=== PATIENT | female | born 1940 | race Caucasian/White ===

== ENCOUNTER 2017-08-17 18:25 | Emergency (ER) | payer MEDICARE, OTHER ==
--- NOTE | 2017-08-17 19:19 | ERPHSYRPT ---
- History of Present Illness Time Seen by Provider: 08/17/17 19:13 Source: patient Exam Limitations: no limitations Patient Subjective Stated Complaint: Pt states "I think I am having problems with my kidneys. My back really hurts." Triage Nursing Assessment: Pt alert and oriented X 3, skin pwd. PT ambulates with an upright steady gait, able to speak in clear full sentences. PT in no aparent respiratory distress. Physician History: Pt. with history of DJD presents with urinary symptoms and R side back pain for past 2 weeks. States R sided back pain is dull ache, intermittent, localized and worse with movements. Pt. also with difficulty urinating, urgency, frequency but denies dysuria, fever, chills, vomiting, dizziness or weakness. States she took Celebrex for discomfort. Timing/Duration: week(s) (2), intermittent Activites at Onset: none Quality: aching, fullness Onset Location: right flank Pain Radiation: none Severity of Pain-Max: moderate Severity of Pain-Current: mild Sexual intercourse history: non-contributory Modifying Factors: Improves With: lying down (improves), movement (worsens) Associated Symptoms: nausea, urinary frequency, lower back pain, No abdominal pain, No fever, No chills, No vomiting Allergies/Adverse Reactions: phenobarbital Allergy (Mild, Verified 09/10/14 20:29) Rash promethazine HCl [From Phenergan] Adverse Reaction (Mild, Verified 09/10/14 20: 29) Nausea Home Medications: Aspirin EC 81 mg [Ecotrin 81 mg] 81 mg PO DAILY 01/10/13 [History] Celecoxib [Celebrex] 200 mg PO DAILY 01/10/13 [History] Esomeprazole Magnesium [Nexium] 20 mg PO DAILY 01/10/13 [History] Insulin Aspart [NovoLOG Insulin] 0 unit SQ UD 01/10/13 [History] Insulin Glargine [Lantus Insulin] 12 unit SQ UD 01/10/13 [History] Levothyroxine Sodium 125 Mcg [Synthroid 125 Mcg] 100 mcg PO DAILY 01/10/13 [History] Lorazepam [Ativan] 2 mg PO HS PRN 01/10/13 [History] Metoprolol Succinate 100 mg [Toprol Xl 100 MG] 100 mg PO DAILY 09/11/14 [ History] Valsartan [Valsartan] 160 mg PO DAILY 08/17/17 [History] Hx Tetanus, Diphtheria Vaccination/Date Given: No Hx Influenza Vaccination/Date Given: Yes Hx Pneumococcal Vaccination/Date Given: Yes - Review of Systems Constitutional: No Fever, No Chills Eyes: No Symptoms Ears, Nose, & Throat: No Symptoms Respiratory: No Symptoms, No Cough, No Dyspnea Cardiac: No Symptoms, No Chest Pain, No Edema, No Syncope Abdominal/Gastrointestinal: Nausea, No Abdominal Pain, No Vomiting, No Diarrhea , No Melena Genitourinary Symptoms: Frequency, Urgency, No Dysuria, No Hematuria Musculoskeletal: Back Pain (R sided), No Neck Pain Skin: No Symptoms, No Rash Neurological: No Dizziness, No Focal Weakness, No Sensory Changes Psychological: No Symptoms Endocrine: No Symptoms All Other Systems: Reviewed and Negative - Past Medical History Pertinent Past Medical History: Yes Neurological History: Migraines, Other ENT History: Cataracts Cardiac History: Arrhythmia, Hypertension Respiratory History: No Pertinent History Endocrine Medical History: Diabetes Type I, Hypothyroidism, Liver Disease Musculoskeletal History: Fibromyalgia, Osteoporosis GI Medical History: Cirrhosis, GERD, Gallbladder Disease, Hepatitis History: No Pertinent History Psycho-Social History: Anxiety Female Reproductive Disorders: Fibroids Other Medical History: hepatitis with blood transfusion. brain tumor- ( menjanoni) no intervention - Past Surgical History Past Surgical History: Yes Neuro Surgical History: No Pertinent History Cardiac: Cardiac Catheterization Respiratory: No Pertinent History Gastrointestinal: Appendectomy, Cholecystectomy Genitourinary: No Pertinent History Musculoskeletal: Joint Replacement, Orthopedic Surgery Female Surgical History: Hysterectomy, Lumpectomy Other Surgical History: back surgery. bilateral wrist. Left hip replacement. left cataract lens - Social History Smoking Status: Never smoker Exposure to second hand smoke: No Drug Use: none Patient Lives Alone: No - Female History Hx Now: No - Nursing Vital Signs Nursing Vital Signs: Initial Vital Signs Temperature 98.1 F 08/17/17 18:32 Pulse Rate 90 08/17/17 18:32 Respiratory Rate 16 08/17/17 18:32 Blood Pressure 173/78 08/17/17 18:32 O2 Sat by Pulse Oximetry 94 L 08/17/17 18:32 Pain Scale Pain Intensity 0 - Physical Exam General Appearance: no apparent distress, alert Eye Exam: PERRL/EOMI, eyes nml inspection Ears, Nose, Throat Exam: normal ENT inspection, TMs normal, pharynx normal, moist mucous membranes Neck Exam: normal inspection, non-tender, supple, full range of motion Respiratory Exam: normal breath sounds, lungs clear, No respiratory distress Cardiovascular Exam: regular rate/rhythm, normal heart sounds, normal peripheral pulses Gastrointestinal/Abdomen Exam: soft, No tenderness, No mass Back Exam: normal inspection, normal range of motion, vertebral tenderness (R paralumbar tenderness to palpation), No CVA tenderness Extremity Exam: normal inspection, normal range of motion, pelvis stable Neurologic Exam: alert, oriented x 3, cooperative, security auditor II-XII nml as tested, normal mood/affect, sensation nml, No motor deficits Skin Exam: normal color, warm, dry Lymphatic Exam: No adenopathy SpO2: 94 Oxygen Delivery: Room Air - Course Nursing assessment & vital signs reviewed: Yes - CT Exams Abdomen/Pelvis CT Interpretation: Tele-radiologist Report, Other (No hydronephrosis/stones noted) Ordered Tests: Active Orders 24 hr Category Date Time Status Clean Catch Urine Specimen STAT Care 08/17/17 19:13 Active ABDOMEN AND PELVIS W/0 CONTRAS [CT] Stat Exams 08/17/17 20:14 Taken CBC W DIFF Stat Lab 08/17/17 20:30 Completed CMP Stat Lab 08/17/17 20:30 Completed CULTURE,URINE Stat Lab 08/17/17 19:19 Received UA W/ MICROSCOPIC Stat Lab 08/17/17 19:19 Completed Medication Summary Discontinued Medications Generic Name Dose Route Start Last Admin Trade Name Caleb PRN Reason Stop Dose Admin Ondansetron HCl 4 mg 08/17/17 21:12 08/17/17 21:15 Zofran 4 Mg/2 Ml Vial IV 08/17/17 21:13 4 mg STAT ONE Administration Ondansetron HCl Confirm 08/17/17 21:13 Zofran 4 Mg/2 Ml Vial Administered 08/17/17 21:14 Dose 4 mg .ROUTE .STK-MED ONE Lab/Rad Data: Laboratory Result Diagrams 08/17/17 20:30 08/17/17 20:30 Laboratory Results 08/17/17 08/17/17 08/17/17 Range/Units 20:30 20:30 19:19 WBC 5.7 (4.0-10.5) K/mm3 RBC 4.19 (4.1-5.4) M/mm3 Hgb 13.1 (12.0-16.0) gm/dl Hct 38.1 (35-47) % MCV 90.9 (78-100) fl MCH 31.3 (26-32) pg MCHC 34.4 (32-36) g/dl RDW 13.9 (11.5-14.0) % Plt Count 105 L (150-450) K/mm3 MPV 11.0 H (6-9.5) fl Gran % 74.7 H (36.0-66.0) % Eos # (Auto) 0.04 (0-0.5) Absolute Lymphs (auto) 0.91 L (1.0-4.6) Absolute Monos (auto) 0.46 (0.0-1.3) Lymphocytes % 16.0 L (24.0-44.0) % Monocytes % 8.1 (0.0-12.0) % Eosinophils % 0.7 (0.00-5.0) % Basophils % 0.5 (0.0-0.4) % Absolute Granulocytes 4.23 (1.4-6.9) Basophils # 0.03 (0-0.4) Sodium 138 (137-145) mmol/L Potassium 4.3 (3.5-5.1) mmol/L Chloride 103 (98-107) mmol/L Carbon Dioxide 26 (22-30) mmol/L Anion Gap 13.4 (5-15) MEQ/L BUN 13 (7-17) mg/dL Creatinine 0.62 (0.52-1.04) mg/dL Estimated GFR > 60 ML/MIN Glucose 122 H (74-106) mg/dL Calcium 9.3 (8.4-10.2) mg/dL Total Bilirubin 0.70 (0.2-1.3) mg/dL AST 24 (14-36) U/L ALT 16 (0-35) U/L Alkaline Phosphatase 83 (38-126) U/L Serum Total Protein 7.0 (6.3-8.2) g/dL Albumin 3.9 (3.5-5.0) g/dL Ur Collection Type VOID Urine Color YELLOW (YELLOW) Urine Appearance CLEAR (CLEAR) Urine pH 5.0 (5-6) Ur Specific [place] 1.020 (1.005-1.025) Urine Protein NEGATIVE (Negative) Urine Ketones NEGATIVE (NEGATIVE) Urine Blood 250 (0-5) Erickson/ul Urine Nitrite NEGATIVE (NEGATIVE) Urine Bilirubin SMALL (NEGATIVE) Urine Urobilinogen 4 (0-1) mg/dL Ur Leukocyte Esterase TRACE (NEGATIVE) Urine Microscopic RBC 5-10 (0-2) /HPF Urine Microscopic WBC 2-5 (0-5) /HPF Ur Epithelial Cells MODERATE (FEW) /HPF Urine Bacteria FEW (NEGATIVE) /HPF Urine Mucus MODERATE (NEGATIVE) /HPF Urine Culture Reflexed YES (NO) Urine Glucose 50 (NEGATIVE) mg/dL Specimen Received 08/17/171924 - Progress Progress: improved Air Movement: good Progress Note: 08/17/17 19:20 Offered Tylenol or Motrin, but pt. declined at this time Blood Culture(s) Obtained: No Counseled pt/family regarding: lab results, diagnosis - Departure Time of Disposition: 20:07 Departure Disposition: Home Clinical Impression: UTI (urinary tract infection) Condition: Stable Critical Care Time: No Referrals: NOAH DONAHUE [Primary Care Provider] - Instructions: Urinary Tract Infections in Adults Additional Instructions: Rx: Bactrim DS. Drink plenty of clear liquids. May take Motrin or Tylenol for pain/fever. Return for worse back/abdominal pain, vomiting, fever, dizziness, weakness or any problems Prescriptions: Cephalexin Mh 500 mg [Keflex 500 mg] 500 mg PO QID 5 Days #20 capsule Sulfamethoxazole/Trimethoprim [Bactrim Ds Tablet] 1 each PO BID 5 Days #10 tablet
[2017-08-17 20:02] LABS: Appearance CLEAR (CLEAR); Bacteria FEW /HPF (NEGATIVE); Bilirubin SMALL (NEGATIVE); Blood 250 Ery/ul (0-5); Epithelial Cells MODERATE /HPF (FEW); Glucose 50 mg/dL (NEGATIVE); Ketones NEGATIVE (NEGATIVE); Leukocyte Esterase TRACE (NEGATIVE); Mucus MODERATE /HPF (NEGATIVE); Nitrite NEGATIVE (NEGATIVE); Protein,Urine Dip NEGATIVE (Negative); Urobilinogen 4 mg/dL (0-1)
[2017-08-17 20:41] LABS: BASOPHIL % 0.5 % (0.0-0.4); Basophil (Absolute #) 0.03 (0-0.4); Eosinophil % 0.7 % (0.00-5.0); Eosinophil (Absolute #) 0.04 (0-0.5); Granulocyte Absolute (ANC) 4.23 (1.4-6.9); Granulocytes % 74.7 % (36.0-66.0); Hematocrit 38.1 % (35-47); Hemoglobin 13.1 gm/dl (12.0-16.0); Lymphocyte (Absolute #) 0.91 (1.0-4.6); Mean Cell Volume 90.9 fl (78-100); Mean Corpuscular Hemoglobin 31.3 pg (26-32); Mean Corpuscular Hgb Concent. 34.4 g/dl (32-36); Monocyte (Absolute #) 0.46 (0.0-1.3); Monocytes % 8.1 % (0.0-12.0); Platelet Count 105 K/mm3 (150-450); Red Blood Count 4.19 M/mm3 (4.1-5.4); Red Cell Distribution Width 13.9 % (11.5-14.0); White Blood Count 5.7 K/mm3 (4.0-10.5)
[2017-08-17 21:05] LABS: ALBUMIN 3.9 g/dL (3.5-5.0); ALKALINE PHOSPHATASE 83 U/L (38-126); ANION GAP 13.4 MEQ/L (5-15); BLOOD UREA NITROGEN 13 mg/dL (7-17); CHLORIDE 103 mmol/L (98-107); Calcium 9.3 mg/dL (8.4-10.2); Carbon Dioxide 26 mmol/L (22-30); Creatinine 1 0.62 mg/dL (0.52-1.04); Glucose 122 mg/dL (74-106); Potassium 4.3 mmol/L (3.5-5.1); SGOT/AST 24 U/L (14-36); SGPT/ALT 16 U/L (0-35); SODIUM 138 mmol/L (137-145)
[2017-08-17 21:12] VITALS: PULSE 71
[2017-08-17] MEDS ORDERED: Zofran 4 MG/2 ML VIAL IV ONE (21:12)
[2017-08-17] MEDS ORDERED: Zofran 4 MG/2 ML VIAL ONE (21:13)
[2017-08-17 22:26] VITALS: BP 146/79; O2SAT 95
--- NOTE | 2017-08-18 08:48 | XRAY ---
Indication: Right flank pain and hematuria. Multiple contiguous axial images obtained through the abdomen and pelvis without contrast using renal stone protocol. Comparison: June 02, 2012. Lung bases again demonstrates mild bibasilar atelectasis/scarring and right posterior calcified granuloma. No infiltrate or effusion. Heart is not enlarged. Again moderate sized hiatal hernia. There are bilateral hip prostheses producing extensive beam artifact limiting evaluation at this level. No renal calculus or evidence for obstructive uropathy in either system. Noncontrasted stomach and bowel loops appear nonobstructed. Previous reported appendectomy, hysterectomy, and cholecystectomy. No free fluid/air. Liver again demonstrates micro-lobular margins favoring cirrhosis. Spleen remains enlarged today measuring 15 cm in greatest axial dimension again with tiny calcified granulomas. Remaining pancreas, adrenal glands, kidneys, ureters, and bladder appear unremarkable for noncontrast exam. Mild aortoiliac calcifications without AAA. Osseous structures intact again with mild/moderate multilevel degenerative spondylosis, minimal grade 1 L4 spondylolisthesis, and mild levoscoliosis centered at L3. Impression: 1. Images through the pelvis limited due to beam artifact from bilateral hip prostheses. 2. No renal calculus or evidence for obstructive uropathy. 3. Again incidental cirrhotic appearing liver without ascites and splenomegaly. 4. Stable moderate-sized hiatal hernia and evidence for old granulomatous disease. 5. Stable scoliosis, multilevel degenerative spondylosis, and minimal grade [address] DI 23.68
== END 2017-08-17 22:34 | disposition home or self-care (01) ==
LOC: ED 18:25
DX: N39.0 Urinary tract infection, site not specified (principal); I10 Essential (primary) hypertension; E10.8 Type 1 diabetes mellitus with unspecified complications; Z79.4 Long term (current) use of insulin; E03.9 Hypothyroidism, unspecified; M79.7 Fibromyalgia; M81.0 Age-related osteoporosis without current pathological fracture; K74.60 Unspecified cirrhosis of liver; K21.9 Gastro-esophageal reflux disease without esophagitis; K75.9 Inflammatory liver disease, unspecified; Z79.899 Other long term (current) drug therapy
CPT/HCPCS: 36000; 36415; 74176; 80053; 81000; 85025; 87086; 96365; 96374; 99284; J2405

== ENCOUNTER 2018-05-12 18:43 | Emergency (ER) | payer MEDICARE, OTHER ==
[2018-05-12] MEDS ORDERED: Sodium Chloride 0.9% 1000 ML 1,000 ML IV SCH (19:15)
[2018-05-12] MEDS ORDERED: Sodium Chloride 0.9% 1000 ML 1,000 ML ONE (19:27)
[2018-05-12 19:37] LABS: BASOPHIL % 0.2 % (0.0-0.4); Basophil (Absolute #) 0.01 (0-0.4); Eosinophil % 2.6 % (0.00-5.0); Eosinophil (Absolute #) 0.12 (0-0.5); Granulocyte Absolute (ANC) 2.55 (1.4-6.9); Granulocytes % 56.3 % (36.0-66.0); Hematocrit 40.1 % (35-47); Hemoglobin 13.4 gm/dl (12.0-16.0); Lymphocyte (Absolute #) 1.57 (1.0-4.6); Lymphocytes % 34.7 % (24.0-44.0); Mean Cell Volume 92.8 fl (78-100); Mean Corpuscular Hgb Concent. 33.4 g/dl (32-36); Mean Platelet Volume 11.1 fl (6-9.5); Monocyte (Absolute #) 0.28 (0.0-1.3); Monocytes % 6.2 % (0.0-12.0); Platelet Count 100 K/mm3 (150-450); Red Blood Count 4.32 M/mm3 (4.1-5.4); Red Cell Distribution Width 13.5 % (11.5-14.0); White Blood Count 4.5 K/mm3 (4.0-10.5)
[2018-05-12 19:57] VITALS: O2SAT 97
--- NOTE | 2018-05-12 19:57 | ERPHSYRPT ---
- History of Present Illness Time Seen by Provider: 05/12/18 19:00 Source: patient Exam Limitations: clinical condition Patient Subjective Stated Complaint: pt here for palpations all day today, she has hx of this,pt denies any other cos, Triage Nursing Assessment: pt alert, resp easy, skin w/d/p. chest clear, abd soft, slight edema to lower legs Physician History: PATIENT WITH A HISTORY OF HYPOTHYROIDISM, HYPERTENSION AND PALPITATIONS FOR YEARS, COMPLAINS OF IRREGULAR HEART RATE TODAY. PATIENT DENIES CHEST PAIN, DIAPHORESIS OR DIZZINESS. Timing/Duration: day(s) Activities at Onset: none Location: substernal Chest Pain Radiation: no radiation Severity of Pain-Max: none Severity of Pain-Current: none Nitro Today/Relief: no nitro taken today Aspirin Treatment Today: no aspirin today, provided by ED Associated Symptoms: denies symptoms Prior Chest Pain/Cardiac Workup: no prior chest pain Allergies/Adverse Reactions: phenobarbital Allergy (Mild, Verified 05/12/18 19:00) Rash promethazine HCl [From Phenergan] Adverse Reaction (Mild, Verified 05/12/18 19: 00) Nausea Home Medications: Aspirin EC 81 mg [Ecotrin 81 mg] 81 mg PO DAILY 01/10/13 [History] Celecoxib [Celebrex] 200 mg PO DAILY 01/10/13 [History] Esomeprazole Magnesium [Nexium] 20 mg PO DAILY 01/10/13 [History] Insulin Aspart [NovoLOG Insulin] 0 unit SQ UD 01/10/13 [History] Insulin Glargine [Lantus Insulin] 12 unit SQ UD 01/10/13 [History] Levothyroxine Sodium 125 Mcg [Synthroid 125 Mcg] 100 mcg PO DAILY 01/10/13 [History] Lorazepam [Ativan] 2 mg PO HS PRN 01/10/13 [History] Metoprolol Succinate 100 mg [Toprol Xl 100 MG] 100 mg PO DAILY 09/11/14 [ History] Hx Tetanus, Diphtheria Vaccination/Date Given: No Hx Influenza Vaccination/Date Given: Yes Hx Pneumococcal Vaccination/Date Given: Yes Immunizations Up to Date: Yes - Review of Systems Constitutional: No Fever, No Chills Eyes: No Symptoms Ears, Nose, & Throat: No Symptoms Respiratory: No Symptoms, No Cough, No Dyspnea Cardiac: Palpitations, No Chest Pain, No Edema, No Syncope Abdominal/Gastrointestinal: Constipation, No Abdominal Pain, No Nausea, No Vomiting, No Diarrhea Genitourinary Symptoms: No Symptoms, No Dysuria Musculoskeletal: No Symptoms, No Back Pain, No Neck Pain Skin: No Rash Neurological: No Dizziness, No Focal Weakness, No Sensory Changes Psychological: No Symptoms Endocrine: No Symptoms All Other Systems: Reviewed and Negative - Past Medical History Pertinent Past Medical History: Yes Neurological History: Migraines, Other ENT History: Cataracts Cardiac History: Arrhythmia, Hypertension Respiratory History: No Pertinent History Endocrine Medical History: Diabetes Type I, Hypothyroidism, Liver Disease Musculoskeletal History: Fibromyalgia, Osteoporosis GI Medical History: Cirrhosis, GERD, Gallbladder Disease, Hepatitis History: No Pertinent History Psycho-Social History: Anxiety Female Reproductive Disorders: Fibroids Other Medical History: 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 bilateral wrist. Left hip replacement. left cataract lens - Social History Smoking Status: Never smoker Exposure to second hand smoke: No Drug Use: none Patient Lives Alone: No - Female History Hx Last Menstrual Period: post Hx Now: No - Nursing Vital Signs Nursing Vital Signs: Initial Vital Signs Temperature 97.0 F 05/12/18 18:50 Pulse Rate 97 H 05/12/18 18:50 Respiratory Rate 18 05/12/18 18:50 Blood Pressure 176/95 05/12/18 18:50 O2 Sat by Pulse Oximetry 97 05/12/18 18:50 Pain Scale Pain Intensity 0 - Physical Exam General Appearance: no apparent distress, alert Eye Exam: PERRL/EOMI, eyes nml inspection Ears, Nose, Throat Exam: normal ENT inspection, moist mucous membranes Neck Exam: normal inspection, non-tender, supple Respiratory Exam: normal breath sounds, lungs clear, No respiratory distress Cardiovascular Exam: regular rate/rhythm, normal heart sounds, No edema Gastrointestinal/Abdomen Exam: soft, No tenderness, No mass Back Exam: normal inspection, No CVA tenderness, No vertebral tenderness Extremity Exam: normal inspection, normal range of motion Neurologic Exam: alert, oriented x 3, cooperative, normal mood/affect, nml cerebellar function, sensation nml, No motor deficits Skin Exam: normal color, warm, dry Lymphatic Exam: No adenopathy SpO2: 97 Oxygen Delivery: Room Air - Course EKG Interpreted by Me: RATE, NORMAL AXIS (SINUS ARRHYTHMIA), Other (RATE 98) - Radiology Exams Chest X-ray Interpretation: Interpreted by me (CHRONIC INTERSTITIAL CHANGES) Ordered Tests: Active Orders 24 hr Category Date Time Status Welder Gas Tungsten Arc STAT Care 05/12/18 19:14 Active Oxygen-ED Only NASAL CANNULA 2 lpm Care 05/12/18 19:13 Active CHEST 1 VIEW (PORTABLE) Stat Exams 05/12/18 19:14 Taken BLOOD CULTURE Stat Lab 05/12/18 20:03 Ordered CBC W DIFF Stat Lab 05/12/18 19:10 Completed CMP Stat Lab 05/12/18 19:10 Completed MAGNESIUM Stat Lab 05/12/18 19:10 Completed TROPONIN Q3H Lab 05/12/18 19:10 Completed TROPONIN Q3H Lab 05/12/18 22:15 Ordered TROPONIN Q3H Lab 05/13/18 01:15 Ordered TROPONIN Q3H Lab 05/13/18 04:15 Ordered TROPONIN Q3H Lab 05/13/18 07:15 Ordered TSH, 3RD Generation Stat Lab 05/12/18 19:10 Completed UA W/RFX UR CULTURE Stat Lab 05/12/18 19:45 Completed Medication Summary Generic Name Dose Route Start Last Admin Trade Name Freq PRN Reason Stop Dose Admin Sodium Chloride 1,000 mls @ 50 mls/hr 05/12/18 19:15 05/12/18 19:28 Sodium Chloride 0.9% 1000 Ml IV 06/11/18 19:14 50 mls/hr .Q20H DEVANG Administration Discontinued Medications Generic Name Dose Route Start Last Admin Trade Name Freq PRN Reason Stop Dose Admin Ceftriaxone Sodium/Dextrose 1 g in 50 mls @ 100 mls/hr 05/12/18 20:04 20:23 Rocephin 1 Gm-D5w 50 Ml Bag IV 05/12/18 20:33 100 ml/hr STAT STA 100 mls/hr Administration Ceftriaxone Sodium/Dextrose Confirm 05/12/18 20:15 Rocephin 1 Gm-D5w 50 Ml Bag Administered 05/12/18 20:16 Dose 1 g in 50 mls @ ud IV .STK-MED ONE Lab/Rad Data: Laboratory Result Diagrams 05/12/18 19:10 05/12/18 19:10 Laboratory Results 05/12/18 05/12/18 05/12/18 Range/Units 19:45 19:10 19:10 WBC (4.0-10.5) K/mm3 RBC (4.1-5.4) M/mm3 Hgb (12.0-16.0) gm/dl Hct (35-47) % MCV (78-100) fl MCH (26-32) pg MCHC (32-36) g/dl RDW (11.5-14.0) % Plt Count (150-450) K/mm3 MPV (6-9.5) fl Gran % (36.0-66.0) % Eos # (Auto) (0-0.5) Absolute Lymphs (auto) (1.0-4.6) Absolute Monos (auto) (0.0-1.3) Lymphocytes % (24.0-44.0) % Monocytes % (0.0-12.0) % Eosinophils % (0.00-5.0) % Basophils % (0.0-0.4) % Absolute Granulocytes (1.4-6.9) Basophils # (0-0.4) Sodium 139 (137-145) mmol/L Potassium 3.6 (3.5-5.1) mmol/L Chloride 106 (98-107) mmol/L Carbon Dioxide 25 (22-30) mmol/L Anion Gap 12.5 (5-15) MEQ/L BUN 18 H (7-17) mg/dL Creatinine 1.04 (0.52-1.04) mg/dL Estimated GFR 54.6 ML/MIN Glucose 275 H (74-106) mg/dL Calcium 9.5 (8.4-10.2) mg/dL Magnesium 1.9 (1.6-2.3) mg/dL Total Bilirubin 0.60 (0.2-1.3) mg/dL AST 20 (14-36) U/L ALT 16 (0-35) U/L Alkaline Phosphatase 111 (38-126) U/L Troponin I < 0.012 (0.000-0.034) ng/mL Serum Total Protein 7.2 (6.3-8.2) g/dL Albumin 4.2 (3.5-5.0) g/dL TSH 3rd Generation 1.420 (0.47-4.68) mIU/L Urine Color YELLOW (YELLOW) Urine Appearance CLEAR (CLEAR) Urine pH 6.0 (5-6) Ur Specific [place] 1.012 (1.005-1.025) Urine Protein NEGATIVE (Negative) Urine Ketones NEGATIVE (NEGATIVE) Urine Blood MODERATE (0-5) Erickson/ul Urine Nitrite NEGATIVE (NEGATIVE) Urine Bilirubin NEGATIVE (NEGATIVE) Urine Urobilinogen 4 (0-1) mg/dL Ur Leukocyte Esterase MODERATE (NEGATIVE) Urine WBC (Auto) 51-100 (0-5) /HPF Urine RBC (Auto) 16-25 (0-2) /HPF U Epithel Cells (Auto) RARE (FEW) /HPF Urine Bacteria (Auto) RARE (NEGATIVE) /HPF Urine Mucus (Auto) SLIGHT (NEGATIVE) /HPF Urine Yeast (Budding) Rare (NEGATIVE) /HPF Urine Culture Reflexed yes (NO) Urine Glucose >=500 (NEGATIVE) mg/dL 05/12/18 Range/Units 19:10 WBC 4.5 (4.0-10.5) K/mm3 RBC 4.32 (4.1-5.4) M/mm3 Hgb 13.4 (12.0-16.0) gm/dl Hct 40.1 (35-47) % MCV 92.8 (78-100) fl MCH 31.0 (26-32) pg MCHC 33.4 (32-36) g/dl RDW 13.5 (11.5-14.0) % Plt Count 100 L (150-450) K/mm3 MPV 11.1 H (6-9.5) fl Gran % 56.3 (36.0-66.0) % Eos # (Auto) 0.12 (0-0.5) Absolute Lymphs (auto) 1.57 (1.0-4.6) Absolute Monos (auto) 0.28 (0.0-1.3) Lymphocytes % 34.7 (24.0-44.0) % Monocytes % 6.2 (0.0-12.0) % Eosinophils % 2.6 (0.00-5.0) % Basophils % 0.2 (0.0-0.4) % Absolute Granulocytes 2.55 (1.4-6.9) Basophils # 0.01 (0-0.4) Sodium (137-145) mmol/L Potassium (3.5-5.1) mmol/L Chloride (98-107) mmol/L Carbon Dioxide (22-30) mmol/L Anion Gap (5-15) MEQ/L BUN (7-17) mg/dL Creatinine (0.52-1.04) mg/dL Estimated GFR ML/MIN Glucose (74-106) mg/dL Calcium (8.4-10.2) mg/dL Magnesium (1.6-2.3) mg/dL Total Bilirubin (0.2-1.3) mg/dL AST (14-36) U/L ALT (0-35) U/L Alkaline Phosphatase (38-126) U/L Troponin I (0.000-0.034) ng/mL Serum Total Protein (6.3-8.2) g/dL Albumin (3.5-5.0) g/dL TSH 3rd Generation (0.47-4.68) mIU/L Urine Color (YELLOW) Urine Appearance (CLEAR) Urine pH (5-6) Ur Specific [place] (1.005-1.025) Urine Protein (Negative) Urine Ketones (NEGATIVE) Urine Blood (0-5) Erickson/ul Urine Nitrite (NEGATIVE) Urine Bilirubin (NEGATIVE) Urine Urobilinogen (0-1) mg/dL Ur Leukocyte Esterase (NEGATIVE) Urine WBC (Auto) (0-5) /HPF Urine RBC (Auto) (0-2) /HPF U Epithel Cells (Auto) (FEW) /HPF Urine Bacteria (Auto) (NEGATIVE) /HPF Urine Mucus (Auto) (NEGATIVE) /HPF Urine Yeast (Budding) (NEGATIVE) /HPF Urine Culture Reflexed (NO) Urine Glucose (NEGATIVE) mg/dL - Progress Progress Note: 05/12/18 20:18 IV NORMAL SALINE 50ML/HR ROCEPHIN 1GM IVPB Blood Culture(s) Obtained: Yes Antibiotics given: Yes Counseled pt/family regarding: lab results, diagnosis, need for follow-up, rad results - Departure Time of Disposition: 21:06 Departure Disposition: Home Clinical Impression: SINUS ARRHYTHMIA, URINARY TRACT INFECTION Condition: Stable Critical Care Time: No Referrals: ROWAN,NOAH [Primary Care Provider] - Additional Instructions: ANTIBIOTIC MACROBID 100MG TWICE DAILY FOR 10 DAYS. DRINK PLENTY OF FLUIDS. CONSULT YOUR PRIMARY CARE PROVIDER NEXT WEEK FOR FOLLOW-UP. RETURN TO THE EMERGENCY ROOM ON PERSISTENT PALPITATIONS OR DIFFICULTY BREATHING. Prescriptions: Nitrofurantoin Macro 100 mg [Macrobid 100MG Capsule] 100 mg PO BID #20 cap
[2018-05-12 19:59] LABS: Appearance CLEAR (CLEAR); Bilirubin NEGATIVE (NEGATIVE); Blood MODERATE Ery/ul (0-5); Glucose >=500 mg/dL (NEGATIVE); Ketones NEGATIVE (NEGATIVE); Leukocyte Esterase MODERATE (NEGATIVE); Nitrite NEGATIVE (NEGATIVE); Protein,Urine Dip NEGATIVE (Negative); Specific Gravity 1.012 (1.005-1.025); Urobilinogen 4 mg/dL (0-1)
[2018-05-12] MEDS ORDERED: ROCEPHIN 1 Gm-D5w 50 ml Bag** 1 G/50 ML IVPB IV STA (20:04)
[2018-05-12 20:12] LABS: ALBUMIN 4.2 g/dL (3.5-5.0); ANION GAP 12.5 MEQ/L (5-15); BILIRUBIN,TOTAL 0.6 mg/dL (0.2-1.3); Calcium 9.5 mg/dL (8.4-10.2); Creatinine 1 1.04 mg/dL (0.52-1.04); Potassium 3.6 mmol/L (3.5-5.1); TSH, 3RD Generation 1.42 mIU/L (0.47-4.68); Total Protein 7.2 g/dL (6.3-8.2)
[2018-05-12] MEDS ORDERED: ROCEPHIN 1 Gm-D5w 50 ml Bag** 1 G/50 ML IVPB IV ONE (20:15)
[2018-05-12 21:08] VITALS: BP 168/90; PULSE 74
--- NOTE | 2018-05-13 08:01 | XRAY ---
Indication: Dyspnea. Comparison: August 24, 2006. Portable chest remains clear. Heart and mediastinal structures within normal limits for AP portable technique. Bony thorax intact again with mild osteopenia and degenerative changes. Impression: Stable nonacute chest.
== END 2018-05-12 21:12 | disposition home or self-care (01) ==
LOC: ED 18:43
DX: I49.9 Cardiac arrhythmia, unspecified (principal); N39.0 Urinary tract infection, site not specified; E10.9 Type 1 diabetes mellitus without complications; Z79.4 Long term (current) use of insulin; Z79.899 Other long term (current) drug therapy; E03.9 Hypothyroidism, unspecified; I10 Essential (primary) hypertension
CPT/HCPCS: 36000; 36415; 71045; 80053; 81001; 83735; 84443; 84484; 85025; 87040; 93041; 96360; 96365; 99284; J0696

== ENCOUNTER 2019-12-01 17:13 | Emergency (ER) | payer MEDICARE, OTHER ==
[2019-12-01 17:37] VITALS: O2SAT 96
--- NOTE | 2019-12-01 18:55 | ERPHSYRPT ---
- History of Present Illness Time Seen by Provider: 12/01/19 17:40 Source: patient Exam Limitations: no limitations Patient Subjective Stated Complaint: "I've had this pain in my leg for a few weeks now and it's just getting to be too much." Triage Nursing Assessment: pt presented alert et oriented x3 answering questions appropriately. Pt ambulated with noted limp yet without complications. Pt denied injury to the extremity in question. Pt reported pain behind the right knee onset 2 weeks prior to arrival. Pt reported the pain feeling like a cramp that radiated into her calf and lower thigh. Pupils 3mm brisk reaction to light. Neck supple non-tender. Pt denied chest pain/shortness of breath. Pt denied headache/dizziness/unilateral deficits. Abdomen soft non-tended. Pt denied nausea/vomiting/diarrhea. Radial pulses equal bilateral. Right lower extremity with slight swelling to the posterior knee with tenderness to palpation. Pedal pulses noted to be equal bilateral. Physician History: 79 years old female presented in the ER with chief complaint of right lower extremity pain for the last 2 weeks with progressive worsening, moderate intensity, dull aching/cramping in nature, aggravated with activity and partial relief with resting, associated with mild swelling behind right knee. Denies any discoloration, fall or trauma. Patient is very concerned about getting blood clots. Allergies/Adverse Reactions: phenobarbital Allergy (Mild, Verified 12/01/19 17:23) Rash promethazine HCl [From Phenergan] Adverse Reaction (Mild, Verified 12/01/19 17:23) Nausea Home Medications: Aspirin EC 81 mg [Ecotrin 81 mg] 81 mg PO DAILY 01/10/13 [History] Celecoxib [Celebrex] 200 mg PO DAILY 01/10/13 [History] Esomeprazole Magnesium [Nexium] 20 mg PO DAILY 01/10/13 [History] Insulin Aspart [NovoLOG Insulin] 0 unit SQ UD 01/10/13 [History] Insulin Glargine [Lantus Insulin] 12 unit SQ UD 01/10/13 [History] Levothyroxine Sodium 125 Mcg [Synthroid 125 Mcg] 100 mcg PO DAILY 01/10/13 [History] Lorazepam [Ativan] 2 mg PO HS PRN 01/10/13 [History] Metoprolol Succinate 100 mg [Toprol Xl 100 MG] 100 mg PO DAILY 09/11/14 [History] Hx Tetanus, Diphtheria Vaccination/Date Given: No Hx Influenza Vaccination/Date Given: Yes Hx Pneumococcal Vaccination/Date Given: Yes Travel Risk - International Travel Have you traveled outside of the country in past 3 weeks: No - Coronavirus Screening Are you exhibiting any of the following symptoms?: No Close contact with a COVID-19 positive Pt in past 14-21 Days: No - Review of Systems Constitutional: No Symptoms Eyes: No Symptoms Ears, Nose, & Throat: No Symptoms Respiratory: No Symptoms Cardiac: No Symptoms Abdominal/Gastrointestinal: No Symptoms Musculoskeletal: Myalgias Skin: No Symptoms Neurological: No Symptoms Psychological: No Symptoms Endocrine: No Symptoms Hematologic/Lymphatic: No Symptoms Immunological/Allergic: No Symptoms - Past Medical History Pertinent Past Medical History: Yes Neurological History: Migraines, Other ENT History: Cataracts Cardiac History: Arrhythmia, Hypertension Respiratory History: No Pertinent History Endocrine Medical History: Diabetes Type I, Hypothyroidism, Liver Disease Musculoskeletal History: Fibromyalgia, Osteoporosis GI Medical History: Cirrhosis, GERD, Gallbladder Disease, Hepatitis History: No Pertinent History Psycho-Social History: Anxiety Female Reproductive Disorders: Fibroids Other Medical History: 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 bilateral wrist. Left hip replacement. left cataract lens - Social History Smoking Status: Never smoker Exposure to second hand smoke: No Drug Use: none Patient Lives Alone: No - Nursing Vital Signs Nursing Vital Signs: Initial Vital Signs Pulse Rate 74 12/01/19 17:13 Respiratory Rate 18 12/01/19 17:13 Blood Pressure 166/86 12/01/19 17:13 O2 Sat by Pulse Oximetry 96 12/01/19 17:13 Pain Scale Pain Intensity 8 - Physical Exam General Appearance: no apparent distress Eyes, Ears, Nose, Throat Exam: normal ENT inspection Neck Exam: normal inspection, supple Cardiovascular/Respiratory Exam: normal breath sounds, regular rate/rhythm Legs Exam: right leg: soft tissue tenderness (Minimal tenderness in the calf, behind right knee. No swelling redness.), left leg: non-tender, bilateral leg: normal inspection, normal range of motion Neuro/Tendon Exam: normal sensation, normal motor functions, normal tendon functions Mental Status Exam: alert, oriented x 3, cooperative Skin Exam: normal color SpO2 Interpretation: normal SpO2: 96 O2 Delivery: Room Air - Course Nursing assessment & vital signs reviewed: Yes Ordered Tests: Active Orders 24 hr Category Date Time Status VENOUS UNILAT/LIMITED EXTREMIT [US] Stat Exams 12/01/19 17:59 Taken - Progress Progress: unchanged Progress Note: 12/01/19 18:53 Is offered pain medication which she refused. I did not appreciate any signs of infection/cellulitis. She has no signs of trauma. No bony tenderness. She has muscular tenderness. Ruled out DVT. Patient does have history of chronic pain in the legs. She has good cap refill and symmetrical temperature. I believe patient pain is musculoskeletal in nature. Recommended taking symptomatic treatment and outpatient follow-up. Counseled pt/family regarding: diagnosis, need for follow-up, rad results - Departure Departure Disposition: Home Clinical Impression: Leg pain, right Condition: Stable Critical Care Time: No Referrals: MARSHA POE MD [Primary Care Provider] - Follow Up with PCP/3 days Instructions: Muscle and Bone Pain (DC) Additional Instructions: Tylenol as needed for pain. Compression stocking. Follow-up with primary care for reevaluation. Return to ER for worsening pain/swelling/redness etc.
[2019-12-01 20:04] VITALS: BP 150/72; PULSE 71
--- NOTE | 2019-12-01 21:22 | XRAY ---
Indication: Posterior knee pain 2 weeks. Two-dimensional sonogram and color Doppler imaging of the major venous vessels of the right leg was performed. Comparison: July 22, 2017. Again no thrombus seen in the examined deep venous vessels of the right leg including greater saphenous vein. Veins demonstrate normal compressibility. Venous waveforms are normal with and without augmentation. Impression: Right leg remains negative for DVT. Comment: Preliminary report was given.
== END 2019-12-01 19:50 | disposition home or self-care (01) ==
LOC: ED 17:13
DX: M79.604 Pain in right leg (principal)
CPT/HCPCS: 93971; 99283

== ENCOUNTER 2020-01-02 19:59 | Emergency (ER) | payer MEDICARE, OTHER ==
--- NOTE | 2020-01-02 20:55 | ERPHSYRPT ---
- History of Present Illness Time Seen by Provider: 01/02/20 20:22 Source: patient Patient Subjective Stated Complaint: pt states that she was washing a glass, pt states that she broke the glass and cut her index and middle finger on her right finger, pt states that she was unable to stop the bleeding, pt states that she is on a baby aspirin Triage Nursing Assessment: pt ambulated into the er, pt is axo x3, c/o laceration to rt index finger, laceration measures 1.25 cm on middle finger on rt hand, laceration measure rt index finger 1 cm, denies any pain, vitals wnl Physician History: 79 years old right-handed dominant female presented in the ER with chief complaint of laceration right index and middle finger. Patient reports she was washing dishes and broke up glass pot causing injury to fingers. Initially bleeding was not stopping especially from the index finger distal pulp area but finally stopped prior to arrival. She is complaining of dull aching pain. Up-to-date with tetanus. Not taking any blood thinners. Occurred: just prior to arrival Method of Injury: incised Quality: aching Severity of Pain-Max: mild Severity of Pain-Current: mild Extremities Pain Location: 2nd finger: right, 3rd finger: right Modifying Factors: Improves With: movement, other (pressure) Associated Symptoms: none Allergies/Adverse Reactions: phenobarbital Allergy (Mild, Verified 01/02/20 20:11) Rash promethazine HCl [From Phenergan] Adverse Reaction (Mild, Verified 01/02/20 20:11) Nausea Home Medications: Aspirin EC 81 mg [Ecotrin 81 mg] 81 mg PO DAILY 01/10/13 [History] Celecoxib [Celebrex] 200 mg PO DAILY 01/10/13 [History] Esomeprazole Magnesium [Nexium] 20 mg PO DAILY 01/10/13 [History] Insulin Aspart [NovoLOG Insulin] 0 unit SQ UD 01/10/13 [History] Insulin Glargine [Lantus Insulin] 12 unit SQ UD 01/10/13 [History] Levothyroxine Sodium 125 Mcg [Synthroid 125 Mcg] 100 mcg PO DAILY 01/10/13 [History] Lorazepam [Ativan] 2 mg PO HS PRN 01/10/13 [History] Metoprolol Succinate 100 mg [Toprol Xl 100 MG] 100 mg PO DAILY 09/11/14 [History] Losartan Potassium 50 mg PO DAILY 01/02/20 [History] Hx Tetanus, Diphtheria Vaccination/Date Given: No (unknown) Hx Influenza Vaccination/Date Given: Yes Hx Pneumococcal Vaccination/Date Given: Yes Travel Risk - International Travel Have you traveled outside of the country in past 3 weeks: No - Coronavirus Screening Are you exhibiting any of the following symptoms?: No Close contact with a COVID-19 positive Pt in past 14-21 Days: No - Review of Systems Constitutional: No Symptoms Eyes: No Symptoms Ears, Nose, & Throat: No Symptoms Respiratory: No Symptoms Cardiac: No Symptoms Musculoskeletal: No Symptoms Skin: Skin Lesions Neurological: No Symptoms Psychological: No Symptoms - Past Medical History Pertinent Past Medical History: Yes Neurological History: Migraines, Other ENT History: Cataracts Cardiac History: Arrhythmia, Hypertension Respiratory History: No Pertinent History Endocrine Medical History: Diabetes Type I, Hypothyroidism, Liver Disease Musculoskeletal History: Fibromyalgia, Osteoporosis GI Medical History: Cirrhosis, GERD, Gallbladder Disease, Hepatitis History: No Pertinent History Psycho-Social History: Anxiety Female Reproductive Disorders: Fibroids Other Medical History: 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 bilateral wrist. Right and Left hip replacement. left cataract lens - Social History Smoking Status: Never smoker Exposure to second hand smoke: No Drug Use: none Patient Lives Alone: No - Female History Hx Now: No - Nursing Vital Signs Nursing Vital Signs: Initial Vital Signs Temperature 98.3 F 01/02/20 20:13 Pulse Rate 93 H 01/02/20 20:13 Respiratory Rate 14 01/02/20 20:13 Blood Pressure 145/67 01/02/20 20:13 O2 Sat by Pulse Oximetry 96 01/02/20 20:13 Pain Scale Pain Intensity 0 - Physical Exam General Appearance: no apparent distress, alert Eyes, Ears, Nose, Throat Exam: normal ENT inspection Neck Exam: normal inspection, supple, full range of motion Cardiovascular/Respiratory Exam: normal breath sounds, regular rate/rhythm Hand Exam: laceration (1.5 cm superficial laceration on ventral lateral aspect of right distal index phalanx. No active bleeding. Also small superficial cut on the distal phalanx of middle finger. No bleeding. Intact distal neurovascular.) Neuro/Tendon Exam: normal sensation, normal motor functions Mental Status Exam: alert, oriented x 3, cooperative Skin Exam: normal color SpO2 Interpretation: normal SpO2: 96 O2 Delivery: Room Air Procedures - Laceration/Wound Repair Right Finger Wound Location: Right, hand Wound Length (cm): 2 Wound's Depth, Shape: superficial, linear Wound Explored: clean Irrigated: Yes Hibiclens Prep: Yes Wound Repaired With: Steri-strips, Dermabond - Progress Progress: improved, pain not gone completely, re-examined Progress Note: 01/02/20 21:25 Superficial laceration, clean, applied glue and Steri-Strips on index. No rebleeding. No need of any Steri-Strips or glue on the middle finger. Up-to-date with tetanus. Recommended outpatient follow-up. Counseled pt/family regarding: diagnosis, need for follow-up - Departure Departure Disposition: Home Clinical Impression: Finger laceration Qualifiers: Encounter type: initial encounter Finger: index finger Damage to nail status: without damage Foreign body presence: without foreign body Laterality: right Qualified Code(s): S61.210A - Laceration without foreign body of right index finger without damage to nail, initial encounter Condition: Stable Critical Care Time: No Referrals: MARSHA POE MD [Primary Care Provider] - Follow Up with PCP/3 days Instructions: Common Finger Injuries (DC) Additional Instructions: Take Tylenol as needed. Keep it clean. Follow-up with primary care for reevaluation. Return for increased bleeding swelling pain redness etc.
[2020-01-02 21:05] VITALS: BP 119/75; PULSE 72
[2020-01-02 21:18] VITALS: O2SAT 96
== END 2020-01-02 21:05 | disposition home or self-care (01) ==
LOC: ED 19:59
DX: S61.210A Laceration without foreign body of right index finger without damage to nail, initial encounter (principal); W25.XXXA Contact with sharp glass, initial encounter; Y93.G1 Activity, food preparation and clean up
CPT/HCPCS: 12001; 99283

== ENCOUNTER 2020-09-17 13:53 | Emergency (ER) | payer MEDICARE, OTHER ==
[2020-09-17 14:13] VITALS: O2SAT 96
--- NOTE | 2020-09-17 14:33 | XRAY ---
Exam: 3 views of the right hand from 09/17/2020. Comparison: 3 views the right hand from 07/15/2014. Indication: 79-year-old female with possible sprain of right third finger; swelling and bruising secondary to injury. Findings: AP, oblique, and lateral radiographs of the right hand were obtained. I see no acute fracture or dislocation. Varying mild to moderate osteoarthritic changes are seen involving the interphalangeal joints of the right hand. This has progressed slightly as compared to 07/15/2014. The MCP joints appear unremarkable. I note some osteoarthritis of the distal radial ulnar joint representing no change. The carpal bones appear grossly intact. No radiopaque soft tissue foreign body is seen. There is moderate soft tissue swelling posteriorly overlying the distal metacarpal heads. Correlate clinically. Impression: 1. I note moderate soft tissue swelling overlying the dorsal aspect of the distal metacarpal heads on the lateral radiograph. No radiopaque soft tissue foreign body is seen. Correlate clinically. 2. No acute right hand fracture or dislocation is seen. 3. Degenerative osteoarthritic changes, as discussed above.
--- NOTE | 2020-09-17 15:03 | ERPHSYRPT ---
- History of Present Illness Time Seen by Provider: 09/17/20 14:21 Source: patient Exam Limitations: no limitations Patient Subjective Stated Complaint: Patient has swollen R hand. States she was closing the barn door last night at 1999 and is not sure what happened to it. Did not smash it, but when closing the door is immediately started swelling. States it looks better today than it did last PM. Triage Nursing Assessment: Patient has swollen R hand. Patient states she is having no pain. Patient is able to move fingers, but unable to make fist all the way. Bruising on top and patient states it is moving to the palm of her hand as well. Physician History: 79 years old female [id number] presented in the ER with chief complaint of swelling right hand since last night after she tried to close barn door. She did not hit anything and all of a sudden started to swell up. She kept elevated, apply ice and swelling is improved but still there. Swelling is mostly in the dorsum of hand around knuckles especially on the third digit metacarpophalangeal joint area and some bruising on the palmar aspect of third digit as well. Complaining of mild dull aching pain with movements and mainly because of swelling causing pressure effect. No numbness or tingling in the fingers. No obvious injury otherwise. Allergies/Adverse Reactions: phenobarbital Allergy (Mild, Verified 09/17/20 14:15) Rash promethazine HCl [From Phenergan] Adverse Reaction (Mild, Verified 09/17/20 14:15) Nausea Home Medications: Aspirin EC 81 mg [Ecotrin 81 mg] 81 mg PO DAILY 01/10/13 [History] Celecoxib [Celebrex] 200 mg PO DAILY 01/10/13 [History] Esomeprazole Magnesium [Nexium] 20 mg PO DAILY 01/10/13 [History] Insulin Aspart [NovoLOG Insulin] 0 unit SQ UD 01/10/13 [History] Insulin Glargine [Lantus Insulin] 12 unit SQ UD 01/10/13 [History] Levothyroxine Sodium 125 Mcg [Synthroid 125 Mcg] 100 mcg PO DAILY 01/10/13 [History] Lorazepam [Ativan] 2 mg PO HS PRN 01/10/13 [History] Metoprolol Succinate 100 mg [Toprol Xl 100 MG] 100 mg PO DAILY 09/11/14 [History] Losartan Potassium 50 mg PO DAILY 01/02/20 [History] Hx Tetanus, Diphtheria Vaccination/Date Given: No (unknown) Hx Influenza Vaccination/Date Given: Yes Hx Pneumococcal Vaccination/Date Given: Yes Travel Risk - International Travel Have you traveled outside of the country in past 3 weeks: No - Coronavirus Screening Are you exhibiting any of the following symptoms?: No Close contact with a COVID-19 positive Pt in past 14-21 Days: No - Vaccine Status Have you recieved a Covid-19 vaccination: Yes 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 - Vaccination Dates Date of 2cond Vaccination (if applicable): 07/07/20 - Review of Systems Constitutional: No Symptoms Ears, Nose, & Throat: No Symptoms Respiratory: No Symptoms Cardiac: No Symptoms Abdominal/Gastrointestinal: No Symptoms Musculoskeletal: Joint Swelling Skin: No Symptoms Neurological: No Symptoms Psychological: No Symptoms Endocrine: No Symptoms Hematologic/Lymphatic: No Symptoms - Past Medical History Pertinent Past Medical History: Yes Neurological History: Migraines, Other ENT History: Cataracts Cardiac History: Arrhythmia, Hypertension Respiratory History: No Pertinent History Endocrine Medical History: Diabetes Type I, Hypothyroidism, Liver Disease Musculoskeletal History: Fibromyalgia, Osteoporosis GI Medical History: Cirrhosis, GERD, Gallbladder Disease, Hepatitis History: No Pertinent History Psycho-Social History: Anxiety Female Reproductive Disorders: Fibroids Other Medical History: 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 bilateral wrist. Right and Left hip replacement. left cataract lens - Social History Smoking Status: Never smoker Exposure to second hand smoke: No Drug Use: none Patient Lives Alone: No - Nursing Vital Signs Nursing Vital Signs: Initial Vital Signs Pulse Rate 75 09/17/20 14:04 Blood Pressure 159/81 09/17/20 14:04 O2 Sat by Pulse Oximetry 96 09/17/20 14:04 Pain Scale Pain Intensity 0 - Physical Exam General Appearance: no apparent distress, alert Neck Exam: normal inspection, supple, full range of motion Cardiovascular/Respiratory Exam: normal breath sounds, regular rate/rhythm Shoulder Exam: normal inspection, non-tender Elbow/Forearm Exam: normal inspection, non-tender Wrist Exam: normal inspection, non-tender, no evidence of injury, normal ROM Hand Exam: swelling (Swelling dorsum of right hand distal aspect around knuckles. More swelling in the third digit base metacarpophalangeal joint area. No increased temperature. Soft. Minimal tenderness. Minimal restricted range of motion because of swelling of third digit proximal phalanx. Distal neurovascular we) Neuro/Tendon Exam: normal sensation, normal motor functions, normal tendon functions Mental Status Exam: alert, oriented x 3, cooperative Skin Exam: normal color SpO2 Interpretation: normal SpO2: 96 O2 Delivery: Room Air Ordered Tests: Active Orders 24 hr Category Date Time Status HAND (MINIMUM 3 VIEWS) Stat Exams 09/17/20 14:06 Completed - Progress Progress: unchanged Progress Note: 09/17/20 15:02 X-rays are obtained which are negative for any acute fracture dislocation. She has minimal restricted range of motion which is mostly because of swelling of the finger. Because she is diabetic and has swelling I would prophylactically give her some antibiotics to cover for any infectious etiology causing symptoms. Recommended elevation, Tobi wrap and ice with outpatient follow-up. Discussed signs symptoms of worsening needing return to ER which she seems understanding. Counseled pt/family regarding: diagnosis, need for follow-up, rad results - Departure Departure Disposition: Home Clinical Impression: Swelling of joint, hand, right Condition: Stable Critical Care Time: No Referrals: MARSHA POE MD [Primary Care Provider] - (1-2 days for reevaluation) Instructions: Cellulitis (Skin Infection), Adult (DC) Additional Instructions: Keep it elevated. Apply ice. Take Tylenol as needed for pain. Follow-up with your primary care for reevaluation. Return to ER for increasing swelling or if develop pain, difficulty movements are restricted movements, fever or chills. Prescriptions: Cephalexin Mh 500 mg [Keflex 500 mg] 500 mg PO TID #21 capsule
[2020-09-17 15:10] VITALS: BP 135/79; PULSE 68
== END 2020-09-17 15:14 | disposition home or self-care (01) ==
LOC: ED 13:53
DX: M25.441 Effusion, right hand (principal); E03.9 Hypothyroidism, unspecified; E10.8 Type 1 diabetes mellitus with unspecified complications; M81.0 Age-related osteoporosis without current pathological fracture; Z79.899 Other long term (current) drug therapy
CPT/HCPCS: 73130; 99283

== ENCOUNTER 2020-11-23 09:33 | Emergency (ER) | payer MEDICARE, OTHER ==
--- NOTE | 2020-11-23 10:00 | ERPHSYRPT ---
- History of Present Illness Time Seen by Provider: 11/23/20 09:57 Source: patient, family Exam Limitations: no limitations Patient Subjective Stated Complaint: Pt was weeding and stepped on a stump and it broke and she fell on her right side injuring her right lateral upper ribs Triage Nursing Assessment: Pt brought to the ER by her , hypertensive, rates pain as 6/10, states that it hurts her lungs to breath, no bruising, doesn't appear to be in any distress Physician History: pt fell on right ribs a few days ago and still has tenderness also increased with breathing no other trauma, no blood thinner reported. ext with full ROM and no pain no head injury. chest clear tender righrt lateral ribs Occurred: days ago Reason for Fall: fell from standing pos Injuries/Pain Location: chest Loss of Consciousness: no loss of consciousness Severity of Pain-Max: moderate Severity of Pain-Current: moderate Modifying Factors: Improves With: immobilization, movement Associated Symptoms (Fall): chest pain (with breathing only) Allergies/Adverse Reactions: phenobarbital Allergy (Mild, Verified 11/23/20 09:44) Rash promethazine HCl [From Phenergan] Adverse Reaction (Mild, Verified 11/23/20 09:44) Nausea Home Medications: Aspirin EC 81 mg [Ecotrin 81 mg] 81 mg PO DAILY 01/10/13 [History] Celecoxib [Celebrex] 200 mg PO DAILY 01/10/13 [History] Esomeprazole Magnesium [Nexium] 20 mg PO DAILY 01/10/13 [History] Insulin Aspart [NovoLOG Insulin] 0 unit SQ UD 01/10/13 [History] Insulin Glargine [Lantus Insulin] 10 unit SQ UD 01/10/13 [History] Levothyroxine Sodium 125 Mcg [Synthroid 125 Mcg] 100 mcg PO DAILY 01/10/13 [History] Lorazepam [Ativan] 1 mg PO TID 01/10/13 [History] Metoprolol Succinate 100 mg [Toprol Xl 100 MG] 100 mg PO DAILY 09/11/14 [History] Losartan Potassium 50 mg PO DAILY 01/02/20 [History] Furosemide 20 mg [Lasix 20 mg] 20 mg PO DAILY 11/23/20 [History] Hx Tetanus, Diphtheria Vaccination/Date Given: No (unknown) Hx Influenza Vaccination/Date Given: Yes Hx Pneumococcal Vaccination/Date Given: Yes Travel Risk - International Travel Have you traveled outside of the country in past 3 weeks: No - Coronavirus Screening Are you exhibiting any of the following symptoms?: No Close contact with a COVID-19 positive Pt in past 14-21 Days: No - Vaccine Status Have you recieved a Covid-19 vaccination: Yes 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: [employer] - Vaccination Dates Date of 2cond Vaccination (if applicable): 07/07/20 - Review of Systems Constitutional: No Fever, No Chills Eyes: No Symptoms Ears, Nose, & Throat: No Symptoms Respiratory: No Cough, No Dyspnea Cardiac: Chest Pain (with deep breath), No Edema, No Syncope Abdominal/Gastrointestinal: No Abdominal Pain, No Nausea, No Vomiting, No Diarrhea Genitourinary Symptoms: No Dysuria Musculoskeletal: No Back Pain, No Neck Pain Skin: No Rash Neurological: No Dizziness, No Focal Weakness, No Sensory Changes Psychological: No Symptoms Endocrine: No Symptoms All Other Systems: Reviewed and Negative - Past Medical History Pertinent Past Medical History: Yes Neurological History: Migraines, Other ENT History: Cataracts Cardiac History: Arrhythmia, Hypertension Respiratory History: No Pertinent History Endocrine Medical History: Diabetes Type I, Hypothyroidism, Liver Disease Musculoskeletal History: Fibromyalgia, Osteoporosis GI Medical History: Cirrhosis, GERD, Gallbladder Disease, Hepatitis History: No Pertinent History Psycho-Social History: Anxiety Female Reproductive Disorders: Fibroids Other Medical History: 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 bilateral wrist. Right and Left hip replacement. left cataract lens - Social History Smoking Status: Never smoker Exposure to second hand smoke: No Drug Use: none Patient Lives Alone: No - Female History Hx Now: No - Nursing Vital Signs Nursing Vital Signs: Initial Vital Signs Temperature 97.8 F 11/23/20 09:35 Pulse Rate 84 11/23/20 09:35 Blood Pressure 147/82 11/23/20 09:35 O2 Sat by Pulse Oximetry 95 11/23/20 09:35 Pain Scale Pain Intensity 2 - Josie Coma Score Best Eye Response (Josie): (4) open spontaneously Best Verbal Response (Temple): (5) oriented Best Motor Response (Josie): (6) obeys commands Josie Total: 15 - Physical Exam General Appearance: no apparent distress, alert Head Injury: no evidence of injury Eye Exam: PERRL/EOMI ENT Exam: airway nml Neck Exam: normal inspection, No tenderness Respiratory/Chest Exam: normal breath sounds, No chest tenderness, No respiratory distress Cardiovascular Exam: normal heart sounds, regular rate/rhythm Gastrointestinal Exam: soft, No tenderness, No distention, No guarding, No ecchymosis Back Exam: normal inspection, No vertebral tenderness Extremity Exam: normal inspection, normal range of motion, pelvis stable, No deformities Peripheral Pulses: carotid (R): 2+, carotid (L): 2+, femoral (R): 2+, femoral (L): 2+, dorsalis-pedis (R): 2+, dorsalis-pedis (L): 2+ Neurologic Exam: alert, oriented x 3, cooperative, sensation nml, No motor deficits Skin Exam: normal color, warm, dry SpO2 Interpretation: normal SpO2: 95 O2 Delivery: Room Air - Course Nursing assessment & vital signs reviewed: Yes Ordered Tests: Active Orders 24 hr Category Date Time Status CHEST WITHOUT CONTRAST [CT] Stat Exams 11/23/20 10:02 Taken CBC W DIFF Stat Lab 11/23/20 10:15 Completed CMP Stat Lab 11/23/20 10:15 Completed CULTURE,URINE Stat Lab 11/23/20 11:17 Received TROPONIN Q3H Lab 11/23/20 10:15 Completed TROPONIN Q3H Lab 11/23/20 13:15 Ordered TROPONIN Q3H Lab 11/23/20 16:15 Ordered TROPONIN Q3H Lab 11/23/20 19:15 Ordered TROPONIN Q3H Lab 11/23/20 22:15 Ordered UA W/RFX UR CULTURE Stat Lab 11/23/20 11:17 Completed Lab/Rad Data: Laboratory Result Diagrams 11/23/20 10:15 11/23/20 10:15 Laboratory Results 11/23/20 11/23/20 11/23/20 Range/Units 11:17 10:15 10:15 WBC (4.0-10.5) K/mm3 RBC (4.1-5.4) M/mm3 Hgb (12.0-16.0) gm/dl Hct (35-47) % MCV (78-100) fl MCH (26-32) pg MCHC (32-36) g/dl RDW (11.5-14.0) % Plt Count (150-450) K/mm3 MPV (7.5-11.0) fl Gran % (36.0-66.0) % Eos # (Auto) (0-0.5) Absolute Lymphs (auto) (1.0-4.6) Absolute Monos (auto) (0.0-1.3) Lymphocytes % (24.0-44.0) % Monocytes % (0.0-12.0) % Eosinophils % (0.00-5.0) % Basophils % (0.0-0.4) % Absolute Granulocytes (1.4-6.9) Basophils # (0-0.4) Sodium 140 (137-145) mmol/L Potassium 3.7 (3.5-5.1) mmol/L Chloride 107 (98-107) mmol/L Carbon Dioxide 24 (22-30) mmol/L Anion Gap 12.6 (5-15) MEQ/L BUN 15 (7-17) mg/dL Creatinine 0.75 (0.52-1.04) mg/dL Estimated GFR > 60.0 ML/MIN Glucose 116 H (74-106) mg/dL Calcium 9.5 (8.4-10.2) mg/dL Total Bilirubin 0.60 (0.2-1.3) mg/dL AST 27 (14-36) U/L ALT 16 (0-35) U/L Alkaline Phosphatase 72 (38-126) U/L Troponin I < 0.012 (0.000-0.034) ng/mL Serum Total Protein 6.9 (6.3-8.2) g/dL Albumin 4.1 (3.5-5.0) g/dL Urine Color STRAW (YELLOW) Urine Appearance CLEAR (CLEAR) Urine pH 7.0 (5-6) Ur Specific [place] 1.003 (1.005-1.025) Urine Protein NEGATIVE (Negative) Urine Ketones NEGATIVE (NEGATIVE) Urine Blood SMALL (0-5) Erickson/ul Urine Nitrite NEGATIVE (NEGATIVE) Urine Bilirubin NEGATIVE (NEGATIVE) Urine Urobilinogen NEGATIVE (0-1) mg/dL Ur Leukocyte Esterase TRACE (NEGATIVE) Urine WBC (Auto) 0-2 (0-5) /HPF Urine RBC (Auto) 3-5 (0-2) /HPF U Epithel Cells (Auto) RARE (FEW) /HPF Urine Bacteria (Auto) RARE (NEGATIVE) /HPF Urine Culture Reflexed YES (NO) Urine Glucose NEGATIVE (NEGATIVE) mg/dL 11/23/20 Range/Units 10:15 WBC 3.9 L (4.0-10.5) K/mm3 RBC 4.28 (4.1-5.4) M/mm3 Hgb 13.4 (12.0-16.0) gm/dl Hct 40.0 (35-47) % MCV 93.5 (78-100) fl MCH 31.3 (26-32) pg MCHC 33.5 (32-36) g/dl RDW 13.3 (11.5-14.0) % Plt Count 101 L (150-450) K/mm3 MPV 10.9 (7.5-11.0) fl Gran % 62.3 (36.0-66.0) % Eos # (Auto) 0.09 (0-0.5) Absolute Lymphs (auto) 1.03 (1.0-4.6) Absolute Monos (auto) 0.31 (0.0-1.3) Lymphocytes % 26.8 (24.0-44.0) % Monocytes % 8.1 (0.0-12.0) % Eosinophils % 2.3 (0.00-5.0) % Basophils % 0.5 (0.0-0.4) % Absolute Granulocytes 2.40 (1.4-6.9) Basophils # 0.02 (0-0.4) Sodium (137-145) mmol/L Potassium (3.5-5.1) mmol/L Chloride (98-107) mmol/L Carbon Dioxide (22-30) mmol/L Anion Gap (5-15) MEQ/L BUN (7-17) mg/dL Creatinine (0.52-1.04) mg/dL Estimated GFR ML/MIN Glucose (74-106) mg/dL Calcium (8.4-10.2) mg/dL Total Bilirubin (0.2-1.3) mg/dL AST (14-36) U/L ALT (0-35) U/L Alkaline Phosphatase (38-126) U/L Troponin I (0.000-0.034) ng/mL Serum Total Protein (6.3-8.2) g/dL Albumin (3.5-5.0) g/dL Urine Color (YELLOW) Urine Appearance (CLEAR) Urine pH (5-6) Ur Specific [place] (1.005-1.025) Urine Protein (Negative) Urine Ketones (NEGATIVE) Urine Blood (0-5) Erickson/ul Urine Nitrite (NEGATIVE) Urine Bilirubin (NEGATIVE) Urine Urobilinogen (0-1) mg/dL Ur Leukocyte Esterase (NEGATIVE) Urine WBC (Auto) (0-5) /HPF Urine RBC (Auto) (0-2) /HPF U Epithel Cells (Auto) (FEW) /HPF Urine Bacteria (Auto) (NEGATIVE) /HPF Urine Culture Reflexed (NO) Urine Glucose (NEGATIVE) mg/dL - Progress Progress: improved, re-examined Progress Note: 11/23/20 11:50 pt feels better now - advised of granulomas and nodes to f/u PCP. 11/23/20 11:51 pt wishes to decline UA at this time - advised to f/u PCP in case any continuing syx to consider w/u and that undetected renal injury could still be and she has the capacity to make this choice. Counseled pt/family regarding: lab results, diagnosis, need for follow-up, rad results - Departure Departure Disposition: Home Clinical Impression: Contusion of rib on right side Condition: Good Critical Care Time: No Referrals: MARSHA POE MD [Primary Care Provider] - Instructions: Bruised Rib Additional Instructions: follow-up with your dr this week and for lung granulomas. and blood pressure. return meantime if short of breath, coughing, fever or other concerns. Prescriptions: Cyclobenzaprine HCl [Flexeril] 10 mg PO TID #30 tablet
[2020-11-23 10:29] LABS: BASOPHIL % 0.5 % (0.0-0.4); Basophil (Absolute #) 0.02 (0-0.4); Eosinophil % 2.3 % (0.00-5.0); Eosinophil (Absolute #) 0.09 (0-0.5); Hemoglobin 13.4 gm/dl (12.0-16.0); Lymphocyte (Absolute #) 1.03 (1.0-4.6); Lymphocytes % 26.8 % (24.0-44.0); Mean Cell Volume 93.5 fl (78-100); Mean Corpuscular Hemoglobin 31.3 pg (26-32); Mean Corpuscular Hgb Concent. 33.5 g/dl (32-36); Mean Platelet Volume 10.9 fl (7.5-11.0); Monocyte (Absolute #) 0.31 (0.0-1.3); Monocytes % 8.1 % (0.0-12.0); Neutrophil % 62.3 % (36.0-66.0); Platelet Count 101 K/mm3 (150-450); Red Blood Count 4.28 M/mm3 (4.1-5.4); Red Cell Distribution Width 13.3 % (11.5-14.0); White Blood Count 3.9 K/mm3 (4.0-10.5)
[2020-11-23 10:36] LABS: ALBUMIN 4.1 g/dL (3.5-5.0); ALKALINE PHOSPHATASE 72 U/L (38-126); ANION GAP 12.6 MEQ/L (5-15); BLOOD UREA NITROGEN 15 mg/dL (7-17); CHLORIDE 107 mmol/L (98-107); Calcium 9.5 mg/dL (8.4-10.2); Carbon Dioxide 24 mmol/L (22-30); Creatinine 1 0.75 mg/dL (0.52-1.04); EST GLOMERULAR FILTRATION RATE > 60.0 ML/MIN; Glucose 116 mg/dL (74-106); Potassium 3.7 mmol/L (3.5-5.1); SGOT/AST 27 U/L (14-36); SGPT/ALT 16 U/L (0-35); SODIUM 140 mmol/L (137-145); Total Protein 6.9 g/dL (6.3-8.2)
[2020-11-23 11:40] LABS: Appearance CLEAR (CLEAR); Bacteria RARE /HPF (NEGATIVE); Bilirubin NEGATIVE (NEGATIVE); Blood SMALL Ery/ul (0-5); Epithelial Cells RARE /HPF (FEW); Glucose NEGATIVE (NEGATIVE); Ketones NEGATIVE (NEGATIVE); Leukocyte Esterase TRACE (NEGATIVE); Nitrite NEGATIVE (NEGATIVE); Protein,Urine Dip NEGATIVE (Negative); Specific Gravity 1.003 (1.005-1.025); Urobilinogen NEGATIVE mg/dL (0-1); WBC 0-2 /HPF (0-5)
[2020-11-23] MEDS ORDERED: Cyclobenzaprine 10 MG PO ONE (11:59)
[2020-11-23] MEDS ORDERED: Cyclobenzaprine 10 MG ONE (12:02)
[2020-11-23 12:04] VITALS: BP 143/86; PULSE 72; O2SAT 94
--- NOTE | 2020-11-23 19:10 | XRAY ---
Indication: Right rib pain following fall. Multiple contiguous axial images obtained through the chest without contrast. Comparison: None Lungs demonstrates bilateral dependent atelectasis, minimal bibasilar fibrosis/scarring, and tiny right lower lobe calcified granuloma. No suspicious pulmonary mass/nodule, infiltrate, effusion, or pneumothorax. Heart is borderline enlarged. Aorta is minimally arteriosclerotic without aneurysm. Tiny right hilar and distal paraesophageal calcified nodes. No pathologic mediastinal lymphadenopathy. Moderate size hiatal hernia with partial intrathoracic stomach. Bony thorax intact with osteopenia and mild/moderate degenerative changes throughout the spine. Limited upper abdomen demonstrates 15.6 cm splenomegaly with gastric granulomas and cholecystectomy clips. Impression: 1. Borderline cardiomegaly, bibasilar fibrosis/scarring, hiatal hernia with partial intrathoracic stomach, splenomegaly, chronic bony findings, and old granulomatous disease. 2. Remaining CT chest without contrast exam is negative. Comment: Preliminary interpretation was made by [facility]. No critical discrepancy.
== END 2020-11-23 12:15 | disposition home or self-care (01) ==
LOC: ED 09:33
DX: S20.211A Contusion of right front wall of thorax, initial encounter (principal); R07.81 Pleurodynia; W01.198A Fall on same level from slipping, tripping and stumbling with subsequent striking against other object, initial encounter; Y93.H2 Activity, gardening and landscaping; Z79.899 Other long term (current) drug therapy; R07.9 Chest pain, unspecified; E11.9 Type 2 diabetes mellitus without complications; I10 Essential (primary) hypertension; E03.9 Hypothyroidism, unspecified; R31.9 Hematuria, unspecified
CPT/HCPCS: 36415; 71250; 80053; 81001; 84484; 85025; 87086; 99284; A9270-GY

== ENCOUNTER 2021-08-05 09:08 | Emergency (ER) | payer MEDICARE, OTHER ==
--- NOTE | 2021-08-05 09:39 | ERPHSYRPT ---
- History of Present Illness Time Seen by Provider: 08/05/21 09:30 Historian: patient Exam Limitations: no limitations Patient Subjective Stated Complaint: CONSTIPATION, HAS NOT HAD BOWEL MOVEMENT SINCE 07/28/20 Triage Nursing Assessment: PT ARRIVED BY WHEELCHAIR, PT ALERT AND ORIENTED, APEARS TO BE IN NO DISTRESS, NO ABDOMINAL PAIN, NO CRAMPING, PT STATES, "I HAVE NOT HAD A BOWEL MOVEMENT SINCE 07/28/21." PT HAD SPINAL FUSION SURGERY ON 07/30/21. Physician History: Patient is a 80-year-old female presents to our ED for evaluation of constipation. Patient states she has not had a bowel movement since July 28, 8 days ago. Patient had a spinal fusion on July 30. No complications. Patient states that she has been taking her pain medication and feels medication is making her constipated. However she also mentions that her p.o. has decreased. Patient denies iam pain but feels bloated. No specific areas of tenderness. No trauma. No fever. No change in urine output. Symptoms are constant. Symptoms are moderate in intensity. No specific worsening improving factors. Patient states she feels a little bit nauseous but declined nausea medication. at bedside. They voiced no other complaints or concerns at this time. Timing/Duration: day(s) (8 days) Activities at Onset: none Quality: fullness Abdominal Pain Onset Location: generalized abdomen Pain Radiation: no radiation Severity of Pain-Max: moderate Severity of Pain-Current: mild Modifying Factors: Improves With: nothing Associated Symptoms: nausea, No chest pain, No diarrhea, No neck pain, No shortness of breath, No syncope, No vomiting Allergies/Adverse Reactions: phenobarbital Allergy (Mild, Verified 08/05/21 09:30) Rash promethazine HCl [From Phenergan] Adverse Reaction (Mild, Verified 08/05/21 09:30) Nausea Home Medications: Aspirin EC 81 mg [Ecotrin 81 mg] 81 mg PO DAILY 01/10/13 [History] Celecoxib [Celebrex] 200 mg PO DAILY 01/10/13 [History] Esomeprazole Magnesium [Nexium] 20 mg PO DAILY 01/10/13 [History] Insulin Aspart [NovoLOG Insulin] 0 unit SQ UD 01/10/13 [History] Insulin Glargine [Lantus Insulin] 10 unit SQ UD 01/10/13 [History] Levothyroxine Sodium 125 Mcg [Synthroid 125 Mcg] 100 mcg PO DAILY 01/10/13 [History] Lorazepam [Ativan] 1 mg PO TID 01/10/13 [History] Metoprolol Succinate 100 mg [Toprol Xl 100 MG] 100 mg PO DAILY 09/11/14 [History] Losartan Potassium 50 mg PO DAILY 01/02/20 [History] Furosemide 20 mg [Lasix 20 mg] 20 mg PO DAILY PRN PRN 11/23/20 [History] Oxycodone HCl/Acetaminophen [Oxycodone-Acetaminophen 5-325] 1 each PO Q6HPRN PRN 08/05/21 [History] Hx Tetanus, Diphtheria Vaccination/Date Given: Yes Hx Influenza Vaccination/Date Given: Yes Hx Pneumococcal Vaccination/Date Given: Yes Immunizations Up to Date: Yes Travel Risk - International Travel Have you traveled outside of the country in past 3 weeks: No - Coronavirus Screening Are you exhibiting any of the following symptoms?: No Close contact with a COVID-19 positive Pt in past 14-21 Days: No - Vaccine Status Have you recieved a Covid-19 vaccination: Yes 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[employer] - Vaccination Dates Date of 2cond Vaccination (if applicable): 07/07/20 - Review of Systems Constitutional: No Symptoms, No Fever, No Chills Eyes: No Symptoms Ears, Nose, & Throat: No Symptoms Respiratory: No Symptoms, No Cough, No Dyspnea Cardiac: No Symptoms, No Chest Pain, No Edema, No Syncope Abdominal/Gastrointestinal: No Symptoms, No Abdominal Pain, No Nausea, No Vomiting, No Diarrhea Genitourinary Symptoms: No Symptoms, No Dysuria Musculoskeletal: No Symptoms, No Back Pain, No Neck Pain Skin: No Symptoms, No Rash Neurological: No Symptoms, No Dizziness, No Focal Weakness, No Sensory Changes Psychological: No Symptoms Endocrine: No Symptoms Hematologic/Lymphatic: No Symptoms Immunological/Allergic: No Symptoms All Other Systems: Reviewed and Negative - Past Medical History Pertinent Past Medical History: Yes Neurological History: Migraines, Other ENT History: Cataracts Cardiac History: Arrhythmia, Hypertension Respiratory History: No Pertinent History Endocrine Medical History: Diabetes Type I, Hypothyroidism, Liver Disease Musculoskeletal History: Fibromyalgia, Osteoporosis GI Medical History: Cirrhosis, GERD, Gallbladder Disease, Hepatitis History: No Pertinent History Psycho-Social History: Anxiety Female Reproductive Disorders: Fibroids Other Medical History: 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 bilateral wrist. Right and Left hip replacement. left cataract lens - Social History Smoking Status: Never smoker Exposure to second hand smoke: No Drug Use: none Patient Lives Alone: No - Nursing Vital Signs Nursing Vital Signs: Initial Vital Signs Temperature 97.4 F 08/05/21 09:18 Pulse Rate 116 H 08/05/21 09:18 Respiratory Rate 20 08/05/21 09:18 Blood Pressure 166/72 08/05/21 09:18 Pain Scale Pain Intensity 0 - Physical Exam General Appearance: no apparent distress, alert Eye Exam: PERRL/EOMI, eyes nml inspection Ears, Nose, Throat Exam: normal ENT inspection, TMs normal, pharynx normal, moist mucous membranes, other (Baseline level hard of hearing.) Neck Exam: normal inspection, non-tender, supple, full range of motion Respiratory Exam: normal breath sounds, lungs clear, airway intact, No respiratory distress Cardiovascular Exam: regular rate/rhythm, normal heart sounds, normal peripheral pulses Gastrointestinal/Abdomen Exam: soft, No tenderness, No mass Pelvic Exam: not done Back Exam: normal inspection, normal range of motion, No CVA tenderness, No vertebral tenderness Extremity Exam: normal inspection, normal range of motion, pelvis stable Neurologic Exam: alert, oriented x 3, cooperative, normal mood/affect, nml cerebellar function, sensation nml, No motor deficits Skin Exam: normal color, warm, dry Lymphatic Exam: adenopathy SpO2 Interpretation: normal SpO2: 98 O2 Delivery: Room Air - Course Nursing assessment & vital signs reviewed: Yes - CT Exams Abdomen/Pelvis CT Interpretation: Tele-radiologist Report (CT abdomen pelvis reveals lung calcified granuloma, hiatal hernia with intrathoracic content. Duodenal diverticulum, colonic fecal debris, cirrhotic liver. Hepatic cyst, osteopenia, spine arthritis, spondylolisthesis and levoscoliosis) Ordered Tests: Active Orders 24 hr Category Date Time Status ABDOMEN AND PELVIS W/0 CONTRAS [CT] Stat Exams 08/05/21 09:32 Completed CULTURE,URINE Stat Lab 08/05/21 10:00 Received UA W/RFX UR CULTURE Stat Lab 08/05/21 10:00 Completed Lab/Rad Data: Laboratory Results 08/05/21 Range/Units 10:00 Urine Color AAYUSH (YELLOW) Urine Appearance CLEAR (CLEAR) Urine pH 6.0 (5-6) Ur Specific [place] 1.014 (1.005-1.025) Urine Protein NEGATIVE (Negative) Urine Ketones NEGATIVE (NEGATIVE) Urine Blood SMALL (0-5) Erickson/ul Urine Nitrite NEGATIVE (NEGATIVE) Urine Bilirubin SMALL (NEGATIVE) Urine Urobilinogen 4 (0-1) mg/dL Ur Leukocyte Esterase TRACE (NEGATIVE) Urine WBC (Auto) 3-5 (0-5) /HPF Urine RBC (Auto) 3-5 (0-2) /HPF U Hyaline Cast (Auto) 3-5 (0-2) /LPF U Epithel Cells (Auto) RARE (FEW) /HPF Urine Bacteria (Auto) NONE SEEN (NEGATIVE) /HPF Urine Mucus (Auto) SLIGHT (NEGATIVE) /HPF Urine Culture Reflexed YES (NO) Urine Glucose NEGATIVE (NEGATIVE) mg/dL - Progress Progress: unchanged Progress Note: No acute findings observed on CAT scan of the abdomen pelvis. There was some scattered fecal debris throughout the colon. This is consistent with patient's concern of possible constipation. We advised enema. Patient declined. Patient states she will self administer the enema at home. 08/05/21 10:32 UA shows microscopic hematuria. No urinary tract infection. Will discharge home per patient's request. She agrees to follow-up with primary care doctor within 48 hours for evaluation. Portions of this note were created with voice recognition technology. There may be grammatical, spelling, punctuation or sound alike errors 08/05/21 10:35 Counseled pt/family regarding: lab results, diagnosis, need for follow-up, rad results - Departure Departure Disposition: Home Clinical Impression: Constipation, Lung granuloma, Hiatal hernia, Duodenal diverticulum, Cirrhosis of liver, Hepatic cyst, Osteopenia, Arthritis of spine, Spondylolisthesis of lumbar region, Levoscoliosis, Microscopic hematuria Condition: Stable Critical Care Time: No Referrals: MARSHA POE MD [Primary Care Provider] - Follow up/PCP as directed Additional Instructions: Discharge/Care Plan MERCEDEZ LAZO was seen on 08/05/21 in the Emergency Room. The patient was counseled regarding Diagnosis,Lab results, Imaging studies, need for follow up and when to return to the Emergency Room. Prescriptions given: Discharge Note I have spoken with the patient and/or caregivers. I have explained the patient's condition, diagnosis and treatment plan based on the information available to me at this time. I have answered the patient's and/or caregiver's questions and addressed any concerns. The patient and/or caregivers have as good understanding of the patient's diagnosis, condition and treatment plan as can be expected at this point. The vital signs have been stable. The patient's condition is stable and appropriate for discharge from the emergency department. The patient will pursue further outpatient evaluation with the primary care physician or other designated or consulting physician as outlined in the discharge instructions. The patient and/or caregivers are agreeable to this plan of care and follow-up instructions have been explained in detail. The patient and/or caregivers have received these instruction. The patient/and or caregivers are aware that any significant change in condition or worsening of symptoms should prompt an immediate return to this or the closest emergency department or call 911.
[2021-08-05 10:22] LABS: Appearance CLEAR (CLEAR); Bacteria NONE SEEN /HPF (NEGATIVE); Bilirubin SMALL (NEGATIVE); Blood SMALL Ery/ul (0-5); Epithelial Cells RARE /HPF (FEW); Glucose NEGATIVE (NEGATIVE); Ketones NEGATIVE (NEGATIVE); Leukocyte Esterase TRACE (NEGATIVE); Mucus SLIGHT /HPF (NEGATIVE); Nitrite NEGATIVE (NEGATIVE); Protein,Urine Dip NEGATIVE (Negative); Specific Gravity 1.014 (1.005-1.025); Urobilinogen 4 mg/dL (0-1)
--- NOTE | 2021-08-05 10:23 | XRAY ---
Indication: Obstruction. No bowel movement 8 days. Multiple contiguous axial images obtained through the abdomen and pelvis without contrast. Comparison: January 18, 2019. Lung bases again demonstrates mild subsegmental atelectasis/scarring and tiny right base calcified granuloma. No infiltrate or effusion. Heart not enlarged. Stable moderate size hiatal hernia with partial intrathoracic stomach. Bilateral total hip arthroplasty and bilateral L4-S1 posterior spinal fusion hardware produces extensive beam artifact limiting these levels. Noncontrasted stomach and bowel loops appear nonobstructed. Stable small descending duodenal diverticulum. There is minimal/mild diffuse scattered colonic fecal debris throughout. No free fluid/air. Again cholecystectomy, cirrhotic liver, subcentimeter hepatic cyst adjacent to falciform ligament, and 15.6 cm splenomegaly. Remaining pancreas, adrenal glands, kidneys, ureters, and bladder are unremarkable for noncontrast exam. Again mild scattered aortoiliac calcifications without AAA. Remaining visualized osseous structures intact again with osteopenia, mild/moderate degenerative changes throughout the spine, minimal grade 1 L4 spondylolisthesis, and mild levoscoliosis. Impression: 1. Extensive beam artifact from lower lumbar fusion hardware and bilateral total hip arthroplasty. 2. Minimal/mild diffuse fecal stasis without obstruction. 3. Again hiatal hernia with partial intrathoracic stomach, duodenal diverticulum, cirrhotic liver without ascites, small hepatic cyst, splenomegaly, and chronic bony findings.
[2021-08-05 10:24] VITALS: PULSE 85
[2021-08-05 11:05] VITALS: BP 144/68; O2SAT 92
== END 2021-08-05 11:00 | disposition home or self-care (01) ==
LOC: ED 09:08
DX: K59.00 Constipation, unspecified (principal); J84.10 Pulmonary fibrosis, unspecified; K44.9 Diaphragmatic hernia without obstruction or gangrene; K57.10 Diverticulosis of small intestine without perforation or abscess without bleeding; K74.60 Unspecified cirrhosis of liver; K76.89 Other specified diseases of liver; M85.80 Other specified disorders of bone density and structure, unspecified site; M47.816 Spondylosis without myelopathy or radiculopathy, lumbar region; M43.16 Spondylolisthesis, lumbar region; M41.9 Scoliosis, unspecified; R31.21 Asymptomatic microscopic hematuria; R11.0 Nausea; E10.9 Type 1 diabetes mellitus without complications; Z79.4 Long term (current) use of insulin; I10 Essential (primary) hypertension; Z79.891 Long term (current) use of opiate analgesic
CPT/HCPCS: 74176; 81001; 87077; 87086; 87186; 99284

== ENCOUNTER 2021-10-19 12:04 | Emergency (ER) | payer MEDICARE, OTHER ==
[2021-10-19 12:24] VITALS: O2SAT 94
--- NOTE | 2021-10-19 13:05 | ERPHSYRPT ---
- History of Present Illness Time Seen by Provider: 10/19/21 12:18 Source: patient Exam Limitations: no limitations Patient Subjective Stated Complaint: Pt didn't urinate all day yesterday and so she drank a bunch of water and then she became incontinent Triage Nursing Assessment: Pt brought to the ER by her , chucky delong, denies pain at this time, states that she didn't urinate at all yesterday and so she drank a lot of water and now she urinates herself, pt had back surgery in July but has had no issues, pulses normal, skin n/w/d Physician History: 81-year-old female presented in the ER with suprapubic discomfort, difficulty urination initially and drank a lot of water with no increased urination, burning, frequency with sense of incomplete voiding since yesterday with progressive worsening. Denies any upper abdominal/flank pain. No nausea or vomiting. No fever or chills reported. Timing/Duration: yesterday, gradual onset, worse Activites at Onset: rest Quality: aching Onset Location: suprapubic, urethral Pain Radiation: suprapubic Severity of Pain-Max: moderate Severity of Pain-Current: mild Prior abdominal problems: UTI Sexual intercourse history: non-contributory Modifying Factors: Improves With: nothing Associated Symptoms: abdominal pain, dysuria, urinary frequency Allergies/Adverse Reactions: phenobarbital Allergy (Mild, Verified 10/19/21 12:25) Rash promethazine HCl [From Phenergan] Adverse Reaction (Mild, Verified 10/19/21 12:25) Nausea Home Medications: Aspirin EC 81 mg [Ecotrin 81 mg] 81 mg PO DAILY 01/10/13 [History] Celecoxib [Celebrex] 200 mg PO DAILY 01/10/13 [History] Esomeprazole Magnesium [Nexium] 20 mg PO DAILY 01/10/13 [History] Insulin Aspart [NovoLOG Insulin] 0 unit SQ UD 01/10/13 [History] Insulin Glargine [Lantus Insulin] 10 unit SQ UD 01/10/13 [History] Levothyroxine Sodium 125 Mcg [Synthroid 125 Mcg] 100 mcg PO DAILY 01/10/13 [History] Lorazepam [Ativan] 1 mg PO TID 01/10/13 [History] Metoprolol Succinate 100 mg [Toprol Xl 100 MG] 100 mg PO DAILY 09/11/14 [History] Losartan Potassium 50 mg PO DAILY 01/02/20 [History] Hx Tetanus, Diphtheria Vaccination/Date Given: Yes Hx Influenza Vaccination/Date Given: Yes Hx Pneumococcal Vaccination/Date Given: Yes Travel Risk - International Travel Have you traveled outside of the country in past 3 weeks: No - Coronavirus Screening Are you exhibiting any of the following symptoms?: No Close contact with a COVID-19 positive Pt in past 14-21 Days: No - Vaccine Status Have you recieved a Covid-19 vaccination: Yes 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[employer] - Vaccination Dates Date of 2cond Vaccination (if applicable): 07/07/20 - Review of Systems Constitutional: No Symptoms Ears, Nose, & Throat: No Symptoms Respiratory: No Symptoms Cardiac: No Symptoms Abdominal/Gastrointestinal: Abdominal Pain Genitourinary Symptoms: Dysuria, Frequency Musculoskeletal: No Symptoms Skin: No Symptoms Neurological: No Symptoms Psychological: No Symptoms Hematologic/Lymphatic: No Symptoms Immunological/Allergic: No Symptoms - Past Medical History Pertinent Past Medical History: Yes Neurological History: Migraines, Other ENT History: Cataracts Cardiac History: Arrhythmia, Hypertension Respiratory History: No Pertinent History Endocrine Medical History: Diabetes Type I, Hypothyroidism, Liver Disease Musculoskeletal History: Fibromyalgia, Osteoporosis GI Medical History: Cirrhosis, GERD, Gallbladder Disease, Hepatitis History: No Pertinent History Psycho-Social History: Anxiety Female Reproductive Disorders: Fibroids Other Medical History: 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 bilateral wrist. Right and Left hip replacement. left cataract lens - Social History Smoking Status: Never smoker Exposure to second hand smoke: No Drug Use: none Patient Lives Alone: No - Nursing Vital Signs Nursing Vital Signs: Initial Vital Signs Temperature 97.1 F 10/19/21 12:10 Pulse Rate 97 H 10/19/21 12:10 Blood Pressure 121/81 10/19/21 12:10 O2 Sat by Pulse Oximetry 94 L 10/19/21 12:10 Pain Scale Pain Intensity 0 - Physical Exam General Appearance: no apparent distress, alert Eye Exam: PERRL/EOMI, eyes nml inspection Ears, Nose, Throat Exam: normal ENT inspection Neck Exam: normal inspection, supple, full range of motion Respiratory Exam: normal breath sounds, lungs clear Cardiovascular Exam: regular rate/rhythm, normal heart sounds Gastrointestinal/Abdomen Exam: soft, normal bowel sounds, tenderness (Mild suprapubic discomfort) Back Exam: normal inspection, normal range of motion, No CVA tenderness Extremity Exam: normal inspection, normal range of motion Neurologic Exam: alert, oriented x 3, cooperative, manager room II-XII nml as tested Skin Exam: normal color SpO2 Interpretation: normal SpO2: 94 O2 Delivery: Room Air Ordered Tests: Active Orders 24 hr Category Date Time Status CULTURE,URINE Stat Lab 10/19/21 12:57 Received UA W/RFX CULTURE Stat Lab 10/19/21 12:57 Completed Medication Summary Discontinued Medications Generic Name Dose Route Start Last Admin Trade Name Emoryq PRN Reason Stop Dose Admin Cephalexin HCl 500 mg 10/19/21 14:14 10/19/21 14:21 Cephalexin Mh500 Mg Capsule PO 10/19/21 14:15 500 mg STAT ONE Administration Cephalexin HCl Confirm 10/19/21 14:20 Cephalexin Mh500 Mg Capsule Administered 10/19/21 14:21 Dose 500 mg .ROUTE .STK-MED ONE Lab/Rad Data: Laboratory Results 10/19/21 Range/Units 12:57 Urinalys Dipstick Clnc MAIN LAB Urine Color YELLOW (YELLOW) Urine Appearance CLEAR (CLEAR) Urine pH 7.0 (5-6) Ur Specific [place] 1.010 (1.005-1.025) POC Urine Protein Conf NEGATIVE (Negative) Urine Ketones NEGATIVE (NEGATIVE) Urine Nitrite NEGATIVE (NEGATIVE) Urine Bilirubin NEGATIVE (NEGATIVE) Urine Urobilinogen 0.2 (0-1) mg/dL Urine Leukocytes SMALL (NEGATIVE) Urine WBC (Auto) 6-10 (0-5) /HPF Urine RBC (Auto) NONE (0-2) /HPF U Epithel Cells (Auto) NONE (FEW) /HPF Urine Bacteria (Auto) NONE SEEN (NEGATIVE) /HPF Urine RBC MODERATE (0-5) Erickson/ul Ur Culture Indicated? YES Urine Glucose NEGATIVE (NEGATIVE) mg/dL - Progress Progress: re-examined Air Movement: good Progress Note: 10/19/21 14:35 Patient is not in any distress, does not want anything for pain. Mild suprapubic tenderness. No flank tenderness, negative CVA tenderness. Nontoxic. Stable vitals. Does have UTI, started on Keflex and outpatient follow-up recommended. Discussed signs symptoms of worsening needing return to ER which she seems understanding. Blood Culture(s) Obtained: No Antibiotics given: Yes Counseled pt/family regarding: lab results, diagnosis, need for follow-up - Departure Departure Disposition: Home Clinical Impression: UTI (urinary tract infection) Condition: Stable Critical Care Time: No Referrals: MARSHA POE MD [Primary Care Provider] - Follow Up with PCP/3 days Instructions: Urinary Tract Infection, Adult (DC) Additional Instructions: Drink plenty of fluids, take Tylenol as needed. Continue with antibiotics. Follow-up with primary care for reevaluation. Return to ER for intractable/increasing pain, difficulty urination/fever chills etc. Prescriptions: Cephalexin Mh 500 mg [Keflex 500 mg] 500 mg PO TID #21 cap
[2021-10-19 13:06] VITALS: BP 119/47; PULSE 73
[2021-10-19 13:26] LABS: Appearance CLEAR (CLEAR); Bilirubin NEGATIVE (NEGATIVE); Glucose NEGATIVE (NEGATIVE); Ketones NEGATIVE (NEGATIVE); RBC MODERATE Ery/ul (0-5)
[2021-10-19 13:27] LABS: Bacteria NONE SEEN /HPF (NEGATIVE); Nitrite NEGATIVE (NEGATIVE); Protein,Urine Dip NEGATIVE (Negative); Urine Cultured Indicated? YES; Urobilinogen 0.2 mg/dL (0-1)
[2021-10-19 13:34] LABS: Dipstick done @ ? MAIN LAB
[2021-10-19] MEDS ORDERED: KEFLEX 500 MG PO ONE (14:14)
[2021-10-19] MEDS ORDERED: KEFLEX 500 MG ONE (14:20)
== END 2021-10-19 15:01 | disposition home or self-care (01) ==
LOC: ED 12:04
DX: N39.0 Urinary tract infection, site not specified (principal); R10.2 Pelvic and perineal pain; R30.0 Dysuria; R35.0 Frequency of micturition; I10 Essential (primary) hypertension; E10.9 Type 1 diabetes mellitus without complications; Z79.4 Long term (current) use of insulin; Z79.899 Other long term (current) drug therapy
CPT/HCPCS: 81015; 87086; 99283; A9270-GY

== ENCOUNTER 2022-06-25 16:18 | Emergency (ER) | payer MEDICARE, OTHER ==
--- NOTE | 2022-06-25 19:12 | ERPHSYRPT ---
- History of Present Illness Time Seen by Provider: 06/25/22 19:07 Historian: patient, family Exam Limitations: no limitations Patient Subjective Stated Complaint: left sided ear pain and left flank pain Triage Nursing Assessment: Patient ambulated back to ED and transferred self to bed. Patient A+O X3. Patient's skin pink, warm and dry. Patient complains of left ear pain, hearing difficulty and drainage for several months. Patient states she had michael tubes placed in ears in December and has been putting Cipro ear gtts in ear since. Patient saw ENT yesterday and a hearing test was done. Patient here because she wants some answers. Patient also complains of left side flank pain 4/10 for several days. Patient denies dysuria, frequency or urgency when urinating. Physician History: independent interviews with pt and to confirm hx. pt states has had CP intermnittent left flank but really left lower lateral chest - not SOBreath. Tender to palp. Abd nontender without peritoneal signs or massess. TM with tube on left no drainage today. Had ENT eval finding loss of hearing there yesterday and came today for more w/u here. Ordered Trop, EKG , BNP, CBC, CMP, EKG , D DImer, reviewed and discussed with pt and family. Timing/Duration: day(s), intermittent Activities at Onset: none Location: other (left lateral ) Severity of Pain-Max: mild Associated Symptoms: denies symptoms Nitro Today/Relief: 0.4 mg x 1, provided by ED Aspirin Treatment Today: 81 mg x 4, provided by ED Allergies/Adverse Reactions: phenobarbital Allergy (Mild, Verified 06/25/22 17:39) Rash promethazine HCl [From Phenergan] Adverse Reaction (Mild, Verified 06/25/22 17:39) Nausea Home Medications: Aspirin EC 81 mg [Ecotrin 81 mg] 81 mg PO DAILY 01/10/13 [History] Celecoxib [Celebrex] 200 mg PO DAILY 01/10/13 [History] Esomeprazole Magnesium [Nexium] 20 mg PO DAILY 01/10/13 [History] Insulin Aspart [NovoLOG Insulin] 0 unit SQ UD 01/10/13 [History] Insulin Glargine [Lantus Insulin] 10 unit SQ UD 01/10/13 [History] Levothyroxine Sodium 125 Mcg [Synthroid 125 Mcg] 100 mcg PO DAILY 01/10/13 [History] Lorazepam [Ativan] 1 mg PO TID 01/10/13 [History] Metoprolol Succinate 100 mg [Toprol Xl 100 MG] 100 mg PO DAILY 09/11/14 [History] Losartan Potassium 50 mg PO DAILY 01/02/20 [History] Hx Tetanus, Diphtheria Vaccination/Date Given: Yes Hx Influenza Vaccination/Date Given: Yes Hx Pneumococcal Vaccination/Date Given: Yes Immunizations Up to Date: Yes Travel Risk - International Travel Have you traveled outside of the country in past 3 weeks: No - Coronavirus Screening Are you exhibiting any of the following symptoms?: No Close contact with a COVID-19 positive Pt in past 14-21 Days: No - Vaccine Status Have you recieved a Covid-19 vaccination: Yes 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[employer]: [employer] - Vaccination Dates Date of 2cond Vaccination (if applicable): 07/07/20 - Review of Systems Constitutional: No Fever, No Chills Eyes: No Symptoms Ears, Nose, & Throat: No Symptoms Respiratory: No Cough, No Dyspnea Cardiac: No Chest Pain, No Edema, No Syncope Abdominal/Gastrointestinal: No Abdominal Pain, No Nausea, No Vomiting, No Diarrhea Genitourinary Symptoms: No Dysuria Musculoskeletal: No Back Pain, No Neck Pain Skin: No Rash Neurological: No Dizziness, No Focal Weakness, No Sensory Changes Psychological: No Symptoms Endocrine: No Symptoms All Other Systems: Reviewed and Negative - Past Medical History Pertinent Past Medical History: Yes Neurological History: Migraines, Other ENT History: Cataracts Cardiac History: Arrhythmia, Hypertension Respiratory History: No Pertinent History Endocrine Medical History: Diabetes Type I, Hypothyroidism, Liver Disease Musculoskeletal History: Fibromyalgia, Osteoporosis GI Medical History: Cirrhosis, GERD, Gallbladder Disease, Hepatitis History: No Pertinent History Psycho-Social History: Anxiety Female Reproductive Disorders: Fibroids Other Medical History: 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 bilateral wrist. Right and Left hip replacement. left cataract lens - Social History Smoking Status: Never smoker Exposure to second hand smoke: No Drug Use: none Patient Lives Alone: No - Nursing Vital Signs Nursing Vital Signs: Initial Vital Signs Temperature 98.0 F 06/25/22 17:39 Pulse Rate 81 06/25/22 17:39 Respiratory Rate 18 06/25/22 17:39 Blood Pressure 153/76 06/25/22 17:39 O2 Sat by Pulse Oximetry 96 06/25/22 17:39 Pain Scale Pain Intensity 4 - Physical Exam General Appearance: no apparent distress, alert Eye Exam: PERRL/EOMI, eyes nml inspection Ears, Nose, Throat Exam: normal ENT inspection, moist mucous membranes Neck Exam: normal inspection, non-tender, supple, full range of motion Respiratory Exam: normal breath sounds, chest tenderness, lungs clear, No respiratory distress Cardiovascular Exam: regular rate/rhythm, normal heart sounds Gastrointestinal/Abdomen Exam: soft, No tenderness, No mass Pelvic Exam: deferred Rectal Exam: deferred Back Exam: normal inspection, No CVA tenderness, No vertebral tenderness Extremity Exam: normal inspection, normal range of motion Neurologic Exam: alert, oriented x 3, cooperative, normal mood/affect, sensation nml, No motor deficits Skin Exam: normal color, warm, dry SpO2 Interpretation: normal SpO2: 96 O2 Delivery: Room Air - Course Nursing assessment & vital signs reviewed: Yes EKG Interpreted by Me: Sinus Rhythm, Left [place] Deviation, NORMAL INTERVALS, Non- specific ST Changes, Other (low voltage QRS) - Radiology Exams Chest X-ray Interpretation: Reviewed by me, Infiltrates Ordered Tests: Active Orders 24 hr Category Date Time Status EKG-ER Only STAT Care 06/25/22 19:12 Active IV Insertion STAT Care 06/25/22 19:12 Active CHEST 1 VIEW (PORTABLE) Stat Exams 06/25/22 19:13 Completed AMYLASE Stat Lab 06/25/22 19:30 Completed CBC W DIFF Stat Lab 06/25/22 19:30 Completed CMP Stat Lab 06/25/22 19:30 Completed D-DIMER QUANTITATIVE Stat Lab 06/25/22 19:30 Completed LIPASE Stat Lab 06/25/22 19:30 Completed Lactic Acid Stat Lab 06/25/22 19:40 Completed Lactic Acid Stat Lab 06/25/22 21:46 Received NT PRO BNP Stat Lab 06/25/22 19:30 Completed TROPONIN Q4H Lab 06/25/22 19:30 Completed TROPONIN Q4H Lab 06/25/22 23:15 Ordered TROPONIN Q4H Lab 06/26/22 03:15 Ordered UA W/RFX UR CULTURE Stat Lab 06/25/22 19:00 Completed Medication Summary Generic Name Dose Route Start Last Admin Trade Name Caleb PRN Reason Stop Dose Admin Sodium Chloride 1,000 mls @ 100 mls/hr 06/25/22 19:15 06/25/22 19:23 Sodium Chloride 0.9% 1000 Ml IV 07/25/22 19:14 100 mls/hr .Q10H DEVANG Administration Lab/Rad Data: Laboratory Result Diagrams 06/25/22 19:30 06/25/22 19:30 Laboratory Results 06/25/22 06/25/22 06/25/22 Range/Units 19:40 19:30 19:30 WBC (4.0-10.5) x10^3/uL RBC (4.1-5.4) x10^6/uL Hgb (12.0-16.0) g/dL Hct (35-47) % MCV (78-100) fL MCH (26-32) pg MCHC (32-36) g/dL RDW (11.5-14.0) % Plt Count (150-450) x10^3/uL MPV (7.5-11.0) fL Gran % (36.0-66.0) % Immature Gran % (Auto) (0.00-0.4) % Nucleat RBC Rel Count (0.00-0.1) % Eos # (Auto) (0-0.5) x10^3/uL Immature Gran # (Auto) (0.00-0.03) x10^3u/L Absolute Lymphs (auto) (1.0-4.6) x10^3/uL Absolute Monos (auto) (0.0-1.3) x10^3/uL Absolute Nucleated RBC (0.00-0.01) x10^3u/L Lymphocytes % (24.0-44.0) % Monocytes % (0.0-12.0) % Eosinophils % (0.00-5.0) % Basophils % (0.0-0.4) % Absolute Granulocytes (1.4-6.9) x10^3/uL Basophils # (0-0.4) x10^3/uL D-Dimer 0.59 H (0.0-0.50) mg/L Sodium (137-145) mmol/L Potassium (3.5-5.1) mmol/L Chloride (98-107) mmol/L Carbon Dioxide (22-30) mmol/L Anion Gap (5-15) MEQ/L BUN (7-17) mg/dL Creatinine (0.52-1.04) mg/dL Estimated GFR ML/MIN Glucose (74-106) mg/dL Lactic Acid 2.2 H (0.4-2.0) Calcium (8.4-10.2) mg/dL Total Bilirubin (0.2-1.3) mg/dL AST (14-36) U/L ALT (0-35) U/L Alkaline Phosphatase (38-126) U/L Troponin I < 0.012 (0.000-0.034) ng/mL NT-Pro-B Natriuret Pep (0-1800) pg/mL Serum Total Protein (6.3-8.2) g/dL Albumin (3.5-5.0) g/dL Amylase (30-110) U/L Lipase (23-300) U/L Urine Color (Yellow) Urine Appearance (Clear) Urine pH (4.6-8.0) Ur Specific [place] (1.005-1.030) Urine Protein (Negative) Urine Glucose (UA) (Negative) mg/dL Urine Ketones (Negative) Urine Blood (Negative) Urine Nitrite (Negative) Urine Bilirubin (Negative) Urine Urobilinogen (0.2) mg/dL Ur Leukocyte Esterase (Negative) U Hyaline Cast (Auto) (0-2) /LPF Urine Microscopic RBC (0-5) /HPF Urine Microscopic WBC (0-5) /HPF Ur Epithelial Cells (None Seen) /HPF Urine Bacteria (None Seen) /HPF Urine Culture Reflexed (NO) 06/25/22 06/25/22 06/25/22 Range/Units 19:30 19:30 19:00 WBC 4.2 (4.0-10.5) x10^3/uL RBC 4.30 (4.1-5.4) x10^6/uL Hgb 13.0 (12.0-16.0) g/dL Hct 39.1 (35-47) % MCV 90.9 (78-100) fL MCH 30.2 (26-32) pg MCHC 33.2 (32-36) g/dL RDW 13.0 (11.5-14.0) % Plt Count 112 L (150-450) x10^3/uL MPV 10.4 (7.5-11.0) fL Gran % 64.1 (36.0-66.0) % Immature Gran % (Auto) 0.5 H (0.00-0.4) % Nucleat RBC Rel Count 0.0 (0.00-0.1) % Eos # (Auto) 0.11 (0-0.5) x10^3/uL Immature Gran # (Auto) 0.02 (0.00-0.03) x10^3u/L Absolute Lymphs (auto) 1.06 (1.0-4.6) x10^3/uL Absolute Monos (auto) 0.29 (0.0-1.3) x10^3/uL Absolute Nucleated RBC 0.00 (0.00-0.01) x10^3u/L Lymphocytes % 25.2 (24.0-44.0) % Monocytes % 6.9 (0.0-12.0) % Eosinophils % 2.6 (0.00-5.0) % Basophils % 0.7 (0.0-0.4) % Absolute Granulocytes 2.70 (1.4-6.9) x10^3/uL Basophils # 0.03 (0-0.4) x10^3/uL D-Dimer (0.0-0.50) mg/L Sodium 136 L (137-145) mmol/L Potassium 4.1 (3.5-5.1) mmol/L Chloride 103 (98-107) mmol/L Carbon Dioxide 27 (22-30) mmol/L Anion Gap 9.9 (5-15) MEQ/L BUN 17 (7-17) mg/dL Creatinine 0.80 (0.52-1.04) mg/dL Estimated GFR > 60.0 ML/MIN Glucose 372 H (74-106) mg/dL Lactic Acid (0.4-2.0) Calcium 9.1 (8.4-10.2) mg/dL Total Bilirubin 0.60 (0.2-1.3) mg/dL AST 36 (14-36) U/L ALT 21 (0-35) U/L Alkaline Phosphatase 114 (38-126) U/L Troponin I (0.000-0.034) ng/mL NT-Pro-B Natriuret Pep 93.0 (0-1800) pg/mL Serum Total Protein 7.2 (6.3-8.2) g/dL Albumin 4.2 (3.5-5.0) g/dL Amylase 55 (30-110) U/L Lipase 39 (23-300) U/L Urine Color Yellow (Yellow) Urine Appearance Clear (Clear) Urine pH 6.0 (4.6-8.0) Ur Specific [place] 1.020 (1.005-1.030) Urine Protein Negative (Negative) Urine Glucose (UA) >=1000 A (Negative) mg/dL Urine Ketones Negative (Negative) Urine Blood Small A (Negative) Urine Nitrite Negative (Negative) Urine Bilirubin Negative (Negative) Urine Urobilinogen 1.0 A (0.2) mg/dL Ur Leukocyte Esterase Negative (Negative) U Hyaline Cast (Auto) NONE SEEN (0-2) /LPF Urine Microscopic RBC 6-10 A (0-5) /HPF Urine Microscopic WBC 0-2 (0-5) /HPF Ur Epithelial Cells None Seen (None Seen) /HPF Urine Bacteria None Seen (None Seen) /HPF Urine Culture Reflexed NO (NO) - Progress Progress: improved, re-examined Air Movement: good Progress Note: 06/25/22 22:26 discussed findings with pt and family and provision of ab and they wish to proceed. 06/25/22 22:28 they are advised of low plts, blood in urine, lung x-ray findings that could be infiltrates and in particular the elevated D dimer which can be a blood clot in the lung or due to infection - they do not wish to stay for further w/u such as CTA and since no respi symptoms feel best to f/.u outpt with pMD and have the capacityto make this choice . they understand a cardiac condition also could still be evolving and to return if any further symptoms or concerns. and to have definitive cardiac eval . . discussed diabetes control and they are aware and wish also outpt f/u with their Dr. rather than further tx here in [place]. 06/25/22 22:35 Blood Culture(s) Obtained: No Antibiotics given: No Counseled pt/family regarding: lab results, diagnosis, need for follow-up, rad results - Departure Departure Disposition: Home Clinical Impression: Microscopic hematuria, Lung granuloma, Elevated d-dimer, Otitis externa of left ear, Diabetes Condition: Good Critical Care Time: No Referrals: MARSHA POE MD [Primary Care Provider] - Follow up/PCP as directed Instructions: Outer Ear Infection (DC), Blood in the Urine (Hematuria), Adult (DC) Additional Instructions: We have determine a precise cause for the chest pain and you should have a more definitive workup with your Dr. to more fully exclude any heart problems ongoing. There is an infiltrate in the lung looking chronic but should also be rechecked with your Dr for further workup. There is blood in the urine and low platelets also and blood pressure and diabetes to see the Dr for and adjust - return meantime if any symptoms of concern. return to ENT or see your Dr for a new referral. Prescriptions: Amox Tr/Potass Clav. 875 mg [Augmentin 875-125 Tablet] 875 mg PO BID #20 tablet
[2022-06-25] MEDS ORDERED: Sodium Chloride 0.9% 1000 ML 1,000 ML IV SCH (19:15)
[2022-06-25] MEDS ORDERED: Sodium Chloride 0.9% 1000 ML 1,000 ML ONE (19:17)
[2022-06-25 19:25] LABS: Appearance Clear (Clear); Bacteria None Seen /HPF (None Seen); Bilirubin Negative (Negative); Blood Small (Negative); Epithelial Cells None Seen /HPF (None Seen); Glucose, Urine >=1000 mg/dL (Negative); Hyaline Casts NONE SEEN /LPF (0-2); Ketones Negative (Negative); Leukocyte Esterase Negative (Negative); Nitrite Negative (Negative); Protein,Urine Dip Negative (Negative); WBC 0-2 /HPF (0-5)
[2022-06-25 19:33] LABS: BASOPHIL % 0.7 % (0.0-0.4); Basophil (Absolute #) 0.03 x10^3/uL (0-0.4); Eosinophil % 2.6 % (0.00-5.0); Eosinophil (Absolute #) 0.11 x10^3/uL (0-0.5); Hematocrit 39.1 % (35-47); IMMATURE GRAN # 0.02 x10^3u/L (0.00-0.03); IMMATURE GRAN % 0.5 % (0.00-0.4); Lymphocyte (Absolute #) 1.06 x10^3/uL (1.0-4.6); Lymphocytes % 25.2 % (24.0-44.0); Mean Cell Volume 90.9 fL (78-100); Mean Corpuscular Hemoglobin 30.2 pg (26-32); Mean Corpuscular Hgb Concent. 33.2 g/dL (32-36); Mean Platelet Volume 10.4 fL (7.5-11.0); Monocyte (Absolute #) 0.29 x10^3/uL (0.0-1.3); Monocytes % 6.9 % (0.0-12.0); Neutrophil % 64.1 % (36.0-66.0); Platelet Count 112 x10^3/uL (150-450); White Blood Count 4.2 x10^3/uL (4.0-10.5)
[2022-06-25 19:49] LABS: ADD URINE CULTURE? NO (NO)
[2022-06-25 20:16] LABS: ALBUMIN 4.2 g/dL (3.5-5.0); ALKALINE PHOSPHATASE 114 U/L (38-126); AMYLASE 55 U/L (30-110); ANION GAP 9.9 MEQ/L (5-15); BLOOD UREA NITROGEN 17 mg/dL (7-17); CHLORIDE 103 mmol/L (98-107); Calcium 9.1 mg/dL (8.4-10.2); Carbon Dioxide 27 mmol/L (22-30); EST GLOMERULAR FILTRATION RATE > 60.0 ML/MIN; Glucose 372 mg/dL (74-106); LIPASE 39 U/L (23-300); Potassium 4.1 mmol/L (3.5-5.1); SGOT/AST 36 U/L (14-36); SGPT/ALT 21 U/L (0-35); SODIUM 136 mmol/L (137-145); Total Protein 7.2 g/dL (6.3-8.2)
--- NOTE | 2022-06-25 21:22 | XRAY ---
Indication: Chest pain. Comparison: May 12, 2018 Portable chest demonstrates new mild bibasilar infiltrates versus atelectasis without consolidation/large effusion. Heart borderline enlarged. Bony thorax intact again with osteopenia and mild degenerative changes.
[2022-06-25 21:24] VITALS: PULSE 74
[2022-06-25] MEDS ORDERED: Augmentin 875-125 Tablet PO ONE (22:39)
[2022-06-25] MEDS ORDERED: Augmentin 875-125 Tablet ONE (22:47)
[2022-06-25 22:55] VITALS: BP 142/66; O2SAT 98
== END 2022-06-25 22:59 | disposition home or self-care (01) ==
LOC: ED 16:18
DX: H60.92 Unspecified otitis externa, left ear (principal); R31.29 Other microscopic hematuria; J84.10 Pulmonary fibrosis, unspecified; R79.1 Abnormal coagulation profile; E10.9 Type 1 diabetes mellitus without complications; R07.9 Chest pain, unspecified; R10.9 Unspecified abdominal pain; I10 Essential (primary) hypertension; Z79.4 Long term (current) use of insulin; Z79.899 Other long term (current) drug therapy
CPT/HCPCS: 36000; 36415; 71045; 80053; 81001; 82150; 83605; 83690; 83880; 84484; 85025; 85379; 93005; 99284; A9270-GY

== ENCOUNTER 2023-01-12 15:41 | Emergency (ER) | payer MEDICARE, OTHER ==
[2023-01-12 15:56] VITALS: TEMP 96.9
[2023-01-12] MEDS ORDERED: LOPRESSOR INJECTION IV ONE ×2 (16:00→16:12)
[2023-01-12] MEDS ORDERED: BABY ASPIRIN 81 MG CHEW PO ONE (16:00)
[2023-01-12 16:27] LABS: Absolute Neutrophil Ct (ANC) 3.35 x10^3/uL (1.4-6.9); BASOPHIL % 0.5 % (0.0-0.4); Basophil (Absolute #) 0.03 x10^3/uL (0-0.4); Eosinophil % 1.8 % (0.00-5.0); Hematocrit 40.9 % (35-47); Hemoglobin 13.8 g/dL (12.0-16.0); IMMATURE GRAN # 0.03 x10^3u/L (0.00-0.03); IMMATURE GRAN % 0.5 % (0.00-0.4); Lymphocyte (Absolute #) 1.73 x10^3/uL (1.0-4.6); Lymphocytes % 30.4 % (24.0-44.0); Mean Corpuscular Hemoglobin 31.4 pg (26-32); Mean Corpuscular Hgb Concent. 33.7 g/dL (32-36); Mean Platelet Volume 10.3 fL (7.5-11.0); Monocyte (Absolute #) 0.45 x10^3/uL (0.0-1.3); Monocytes % 7.9 % (0.0-12.0); Neutrophil % 58.9 % (36.0-66.0); Platelet Count 133 x10^3/uL (150-450); Red Cell Distribution Width 12.7 % (11.5-14.0); White Blood Count 5.7 x10^3/uL (4.0-10.5)
[2023-01-12] MEDS ORDERED: BABY ASPIRIN 81 MG CHEW ONE (16:30)
[2023-01-12 16:38] LABS: ALBUMIN 4.4 g/dL (3.5-5.0); ALKALINE PHOSPHATASE 89 U/L (38-126); ANION GAP 15.6 MEQ/L (5-15); BLOOD UREA NITROGEN 19 mg/dL (7-17); CHLORIDE 104 mmol/L (98-107); Calcium 9.1 mg/dL (8.4-10.2); Carbon Dioxide 23 mmol/L (22-30); Creatinine 1 0.89 mg/dL (0.52-1.04); EST GLOMERULAR FILTRATION RATE > 60.0 ML/MIN; Glucose 107 mg/dL (74-106); Potassium 3.6 mmol/L (3.5-5.1); SGOT/AST 31 U/L (14-36); SGPT/ALT 21 U/L (0-35); SODIUM 139 mmol/L (137-145); Total Protein 7.5 g/dL (6.3-8.2)
--- NOTE | 2023-01-12 17:07 | XRAY ---
Indication: Pain following fall. Comparison: June 25, 2022 Portable chest better inflated and now clear. Heart not enlarged with CT proven hiatal hernia. Bony thorax intact again with osteopenia and mild degenerative changes. Impression: Nonacute chest with chronic features.
[2023-01-12 17:10] VITALS: O2SAT 95
[2023-01-12] MEDS ORDERED: Cardizem IV 50 MG/10 ML IV ONE ×2 (17:12→17:22)
--- NOTE | 2023-01-12 17:13 | XRAY ---
Indication: Posterior head injury following fall. History tumor. Multiple contiguous axial images obtained through the head without contrast. Comparison: None Age-appropriate global atrophy. Right posterior fossa demonstrates peripheral well-circumscribed partially calcified ovoid extra-axial mass measuring at least 2.2 x 1.8 x 1.9 cm, possible calcified meningioma. No acute intracranial hemorrhage, abnormal extraction fluid collection, or mass effect. Fourth ventricle is midline without hydrocephalus. Holley-white matter differentiation preserved. Bony calvarium intact. Visualized paranasal sinuses and mastoid air cells are clear. Impression: 1. 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 Outside comparison studies recommended if available. 2. No acute intracranial abnormalities/fracture.
--- NOTE | 2023-01-12 17:31 | ERPHSYRPT ---
- History of Present Illness Time Seen by Provider: 01/12/23 15:44 Source: patient Exam Limitations: no limitations Patient Subjective Stated Complaint: PT states "I was at the library and I stepped on the side of my shoe and I fell and hit the bookshelf with my head and landed flat on my back." Triage Nursing Assessment: PT presented alert and oriented X 3, skin pwd. Pt ambulates with an upright steady gait, able to speak in clear full sentences. PT has a hematoma on her head. Physician History: Patient had mechanical fall in the library prior to arrival. She states that she stepped backwards fell and hit her head and then her upper back. Nonmidline back pain. No step-offs no deformities on T-spine, L-spine palpation. C-spine cleared using Nexus criteria. Patient is in atrial fibrillation tonight. She i s in the rates of 140s to 150s as I walk in the room. Patient states that she has felt that she has had palpitations before. However she has never been officially diagnosed with atrial fibrillation. Patient states that she is not on any blood thinners. She has never been officially diagnosed as above. Patient is already on 100 of metoprolol p.o. daily. Patient follows with and may have seen a juice bar team member in the past. Currently asymptomatic. Allergies/Adverse Reactions: phenobarbital Allergy (Mild, Verified 06/25/22 17:39) Rash promethazine HCl [From Phenergan] Adverse Reaction (Mild, Verified 06/25/22 17:39) Nausea Home Medications: Aspirin EC 81 mg [Ecotrin 81 mg] 81 mg PO DAILY 01/10/13 [History] Celecoxib [Celebrex] 200 mg PO DAILY 01/10/13 [History] Esomeprazole Magnesium [Nexium] 20 mg PO DAILY 01/10/13 [History] Insulin Aspart [NovoLOG Insulin] 0 unit SQ UD 01/10/13 [History] Insulin Glargine [Lantus Insulin] 10 unit SQ UD 01/10/13 [History] Levothyroxine Sodium 125 Mcg [Synthroid 125 Mcg] 100 mcg PO DAILY 01/10/13 [History] Lorazepam [Ativan] 1 mg PO TID 08/21/13 [History] Metoprolol Succinate 100 mg [Toprol Xl 100 MG] 100 mg PO DAILY 09/11/14 [History] Losartan Potassium 50 mg PO DAILY 01/02/20 [History] Hx Tetanus, Diphtheria Vaccination/Date Given: Yes Hx Influenza Vaccination/Date Given: Yes Hx Pneumococcal Vaccination/Date Given: Yes Immunizations Up to Date: Yes Travel Risk - International Travel Have you traveled outside of the country in past 3 weeks: No - Coronavirus Screening Are you exhibiting any of the following symptoms?: No Close contact with a COVID-19 positive Pt in past 14-21 Days: No - Vaccine Status Have you recieved a Covid-19 vaccination: Yes 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: [employer] - Vaccination Dates Date of 2cond Vaccination (if applicable): 07/07/20 - Review of Systems Constitutional: No Fever, No Chills Eyes: No Symptoms Ears, Nose, & Throat: No Symptoms Respiratory: No Cough, No Dyspnea Cardiac: Palpitations, Other (A-fib with RVR), No Edema, No Syncope Abdominal/Gastrointestinal: No Abdominal Pain, No Nausea, No Vomiting, No Diarrhea Genitourinary Symptoms: No Dysuria Musculoskeletal: No Back Pain, No Neck Pain Skin: No Rash Neurological: No Dizziness, No Focal Weakness, No Sensory Changes Psychological: No Symptoms Endocrine: No Symptoms All Other Systems: Reviewed and Negative - Past Medical History Pertinent Past Medical History: Yes Neurological History: Migraines, Other ENT History: Cataracts Cardiac History: Arrhythmia, Hypertension Respiratory History: No Pertinent History Endocrine Medical History: Diabetes Type I, Hypothyroidism, Liver Disease Musculoskeletal History: Fibromyalgia, Osteoporosis GI Medical History: Cirrhosis, GERD, Gallbladder Disease, Hepatitis History: No Pertinent History Psycho-Social History: Anxiety Female Reproductive Disorders: Fibroids Other Medical History: 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 bilateral wrist. Right and Left hip replacement. left cataract lens - Social History Smoking Status: Never smoker Exposure to second hand smoke: No Drug Use: none Patient Lives Alone: No - Nursing Vital Signs Nursing Vital Signs: Initial Vital Signs Temperature 96.9 F 01/12/23 15:45 Pulse Rate 89 01/12/23 15:45 Respiratory Rate 20 01/12/23 15:45 Blood Pressure 189/98 01/12/23 15:45 O2 Sat by Pulse Oximetry 98 01/12/23 15:45 Pain Scale Pain Intensity 6 - Physical Exam General Appearance: no apparent distress, alert, other (Head contusion) Eye Exam: PERRL/EOMI, eyes nml inspection Ears, Nose, Throat Exam: normal ENT inspection, TMs normal, pharynx normal, moist mucous membranes Neck Exam: normal inspection, non-tender, supple, full range of motion Respiratory Exam: normal breath sounds, lungs clear, No respiratory distress Cardiovascular Exam: regular rate/rhythm, normal heart sounds, normal peripheral pulses Gastrointestinal/Abdomen Exam: soft, normal bowel sounds, No tenderness, No mass Back Exam: normal inspection, normal range of motion, No CVA tenderness, No vertebral tenderness Extremity Exam: normal inspection, normal range of motion, pelvis stable Neurologic Exam: alert, oriented x 3, cooperative, normal mood/affect, nml cerebellar function, nml station & gait, sensation nml, No motor deficits Skin Exam: normal color, warm, dry, No rash Lymphatic Exam: No adenopathy SpO2: 95 Ordered Tests: Active Orders 24 hr Category Date Time Status Small Electric Engine Technician STAT Care 01/12/23 16:01 Active EKG-ER Only STAT Care 01/12/23 16:00 Active IV Insertion STAT Care 01/12/23 16:00 Active CHEST 1 VIEW (PORTABLE) Stat Exams 01/12/23 16:01 Completed HEAD WITHOUT CONTRAST [CT] Stat Exams 01/12/23 16:43 Completed CBC W DIFF Stat Lab 01/12/23 16:00 Completed CMP Stat Lab 01/12/23 16:00 Completed NT PRO BNPII Stat Lab 01/12/23 Completed TROPONIN Q4H Lab 01/12/23 16:15 Ordered TROPONIN Q4H Lab 01/12/23 20:15 Ordered TROPONIN Q4H Lab 01/13/23 00:15 Ordered Medication Summary Discontinued Medications Generic Name Dose Route Start Last Admin Trade Name Freq PRN Reason Stop Dose Admin Aspirin 324 mg 01/12/23 16:00 01/12/23 16:29 Aspirin 81 Mg Tab.Chew PO 01/12/23 16:01 324 mg STAT ONE Administration Aspirin Confirm 01/12/23 16:30 Aspirin 81 Mg Tab.Chew Administered 01/12/23 16:31 Dose 324 mg .ROUTE .STK-MED ONE Diltiazem HCl 15 mg 01/12/23 17:12 01/12/23 17:24 Diltiazem Hcl Iv 5 Mg/Ml Vial IV 01/12/23 17:13 Not Given STAT ONE Diltiazem HCl Confirm 01/12/23 17:22 Diltiazem Hcl Iv 5 Mg/Ml Vial Administered 01/12/23 17:23 Dose 50 mg IV .STK-MED ONE Metoprolol Tartrate 5 mg 01/12/23 16:00 01/12/23 16:29 Metoprolol Tartrate 5 Mg/5 Ml Vial IV 01/12/23 16:01 5 mg STAT ONE Administration Metoprolol Tartrate Confirm 01/12/23 16:12 Metoprolol Tartrate 5 Mg/5 Ml Vial Administered 01/12/23 16:13 Dose 5 mg IV .STK-MED ONE Lab/Rad Data: Laboratory Result Diagrams 01/12/23 16:00 01/12/23 16:00 Laboratory Results 01/12/23 01/12/23 01/12/23 Range/Units Unknown 16:00 16:00 WBC 5.7 (4.0-10.5) x10^3/uL RBC 4.40 (4.1-5.4) x10^6/uL Hgb 13.8 (12.0-16.0) g/dL Hct 40.9 (35-47) % MCV 93.0 (78-100) fL MCH 31.4 (26-32) pg MCHC 33.7 (32-36) g/dL RDW 12.7 (11.5-14.0) % Plt Count 133 L (150-450) x10^3/uL MPV 10.3 (7.5-11.0) fL Gran % 58.9 (36.0-66.0) % Immature Gran % (Auto) 0.5 H (0.00-0.4) % Nucleat RBC Rel Count 0.0 (0.00-0.1) % Eos # (Auto) 0.10 (0-0.5) x10^3/uL Immature Gran # (Auto) 0.03 (0.00-0.03) x10^3u/L Absolute Lymphs (auto) 1.73 (1.0-4.6) x10^3/uL Absolute Monos (auto) 0.45 (0.0-1.3) x10^3/uL Absolute Nucleated RBC 0.00 (0.00-0.01) x10^3u/L Lymphocytes % 30.4 (24.0-44.0) % Monocytes % 7.9 (0.0-12.0) % Eosinophils % 1.8 (0.00-5.0) % Basophils % 0.5 (0.0-0.4) % Absolute Granulocytes 3.35 (1.4-6.9) x10^3/uL Basophils # 0.03 (0-0.4) x10^3/uL Sodium 139 (137-145) mmol/L Potassium 3.6 (3.5-5.1) mmol/L Chloride 104 (98-107) mmol/L Carbon Dioxide 23 (22-30) mmol/L Anion Gap 15.6 H (5-15) MEQ/L BUN 19 H (7-17) mg/dL Creatinine 0.89 (0.52-1.04) mg/dL Estimated GFR > 60.0 ML/MIN Glucose 107 H (74-106) mg/dL Calcium 9.1 (8.4-10.2) mg/dL Total Bilirubin 1.00 (0.2-1.3) mg/dL AST 31 (14-36) U/L ALT 21 (0-35) U/L Alkaline Phosphatase 89 (38-126) U/L NT-Pro-B Natriuret Pep 98.2 (<300) pg/mL Serum Total Protein 7.5 (6.3-8.2) g/dL Albumin 4.4 (3.5-5.0) g/dL - Progress Progress: improved Progress Note: 01/12/23 17:45 Differential diagnosis includes: PNA, STEMI, NSTEMI, other infection, musculoskeletal pain, pneumothorax - We'll obtain basic labs, fluids, EKG, troponin, chest x-ray - EKG shows A-fib with RVR - O2 saturations consistently greater than 95%. - CXR shows no pneumonia, pneumothorax - my read -Head CT shows no acute brain bleed. EKG is A-fib with RVR. Patient did spontaneously convert. 5 mg of Lopressor given. She is already on 100 mg of [facility] had no further runs of A-fib with RVR. Head CT negative for acute bleed. Patient overall feeling improved. I did discuss with her PCP, Dr. Poe about appropriate follow-up over the phone. Made the decision to place patient on Eliquis going home. 5 mg twice daily x30 days initially. Further follow-up per Dr. Poe and potentially her juice bar team member. Patient already well rate controlled with metoprolol oral. Will not add any other rate control medication. Patient and feel comfortable with the plan. Discussed with Dr.: Mariano Counseled pt/family regarding: lab results, diagnosis, need for follow-up, rad results - Departure Departure Disposition: Home Clinical Impression: Fall, Atrial fibrillation with RVR Condition: Stable Critical Care Time: No Referrals: MARSHA POE MD [Primary Care Provider] - Follow up/PCP as directed Instructions: Atrial fibrillation, Head Injury in Adults (DC) Prescriptions: Apixaban [Eliquis] 5 mg PO BID 30 Days #60 tablet
[2023-01-12 17:51] VITALS: BP 163/94; PULSE 65; RESP 19
== END 2023-01-12 17:57 | disposition home or self-care (01) ==
LOC: ED 15:41
DX: Z04.3 Encounter for examination and observation following other accident (principal); I48.20 Chronic atrial fibrillation, unspecified; I10 Essential (primary) hypertension; E10.9 Type 1 diabetes mellitus without complications; Z79.01 Long term (current) use of anticoagulants; Z79.4 Long term (current) use of insulin; Z79.899 Other long term (current) drug therapy
CPT/HCPCS: 36000; 36415; 70450; 71045; 80053; 83880; 85025; 93005; 93041; 96374; 99284; A9270-GY

== ENCOUNTER 2023-12-24 20:20 | Emergency (ER) | payer MEDICARE, OTHER ==
--- NOTE | 2023-12-24 20:33 | ERPHSYRPT ---
- History of Present Illness Time Seen by Provider: 12/24/23 20:33 Source: patient, family Exam Limitations: no limitations Physician History: pt has positive COvid test today and notes some sobreath - no CP, has mild cough. on elliquis for Afib - controlled. O2 sat 96% RA. Nomral mental status and neuro. Discussed risks/benefits of testing/ Tx discussed with pt and family including Paxlovid and med interactions- She denies any immune compromize- she and family agree risks for paxlovid with her meds outweighs benefit, she and family chooses Puls Ox, CBC, CXR, EKG, Trops, BNP, and decline D DImer at this time ( given false + rate with infection and that already on blood thinner which would be Tx for DVT/PE which is reasonable and they have the capacity to make this choice. ) . and will take flu and RSV swabs ( comes with COvid) and wish to proceed - these are all ordered. Results discussed. pt reports that she decreased the elliquis after developing bleeding in the right LE a couple weeks ago, but that her DrDeanna did not tell her to do this - although she did tell him about the leg . This has since resolved and no longer bleeding and resolving without pain or swelling. We discussed risks/benefits of recurrence but since her DrDeanna wanted her to stay at the original dose , it seems reasonable to resume but discuss with him SPRING like Tuesday so she is so advised and she agrees after discussion of risk/benefits ( including bleeding vs clots complications ) and has the capacity to make this choice. Timing/Duration: today Cough Quality/Degree: mild, dry cough Possible Cause: no prior episodes Modifying Factors: Improves With: nothing Associated Symptoms: fever, cough Allergies/Adverse Reactions: phenobarbital Allergy (Mild, Verified 12/24/23 20:44) Rash promethazine HCl [From Phenergan] Adverse Reaction (Mild, Verified 12/24/23 20:44) Nausea Home Medications: Aspirin EC 81 mg [Ecotrin 81 mg] 81 mg PO DAILY 01/10/13 [History] Celecoxib [Celebrex] 200 mg PO DAILY 01/10/13 [History] Esomeprazole Magnesium [Nexium] 20 mg PO DAILY 01/10/13 [History] Insulin Aspart [NovoLOG Insulin] 0 unit SQ UD 01/10/13 [History] Insulin Glargine [Lantus Insulin] 10 unit SQ UD 01/10/13 [History] Levothyroxine Sodium 125 Mcg [Synthroid 125 Mcg] 100 mcg PO DAILY 01/10/13 [History] Lorazepam [Ativan] 1 mg PO TID 01/10/13 [History] Metoprolol Succinate 100 mg [Toprol Xl 100 MG] 100 mg PO DAILY 09/11/14 [History] Losartan Potassium 50 mg PO DAILY 01/02/20 [History] Hx Tetanus, Diphtheria Vaccination/Date Given: Yes Hx Influenza Vaccination/Date Given: Yes Hx Pneumococcal Vaccination/Date Given: Yes - Review of Systems Constitutional: Fever, No Chills Eyes: No Symptoms Ears, Nose, & Throat: No Symptoms Respiratory: Cough, Dyspnea, No Stridor, No Wheezing Cardiac: No Symptoms, No Chest Pain, No Edema, No Syncope Abdominal/Gastrointestinal: No Symptoms, No Abdominal Pain, No Nausea, No Vomiting, No Diarrhea Genitourinary Symptoms: No Symptoms, No Dysuria Musculoskeletal: No Symptoms, No Back Pain, No Neck Pain Skin: No Symptoms, No Rash Neurological: No Symptoms, No Dizziness, No Focal Weakness, No Headache, No Sensory Changes Psychological: No Symptoms Endocrine: No Symptoms Hematologic/Lymphatic: No Symptoms Immunological/Allergic: No Symptoms All Other Systems: Reviewed and Negative - Past Medical History Pertinent Past Medical History: Yes Neurological History: Migraines, Other ENT History: Cataracts Cardiac History: Arrhythmia, Hypertension Respiratory History: No Pertinent History Endocrine Medical History: Diabetes Type I, Hypothyroidism, Liver Disease Musculoskeletal History: Fibromyalgia, Osteoporosis GI Medical History: Cirrhosis, GERD, Gallbladder Disease, Hepatitis History: No Pertinent History Psycho-Social History: Anxiety Female Reproductive Disorders: Fibroids Other Medical History: 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 bilateral wrist. Right and Left hip replacement. left cataract lens - Social History Smoking Status: Never smoker Exposure to second hand smoke: No Drug Use: none Patient Lives Alone: No - Nursing Vital Signs Nursing Vital Signs: Initial Vital Signs Temperature 99.4 F 12/24/23 20:31 Pulse Rate 97 H 12/24/23 20:31 Respiratory Rate 16 12/24/23 20:31 Blood Pressure 156/74 12/24/23 20:31 O2 Sat by Pulse Oximetry 97 12/24/23 20:31 Pain Scale Pain Intensity 5 - Physical Exam General Appearance: no apparent distress, alert Eye Exam: PERRL/EOMI, eyes nml inspection Ears, Nose, Throat Exam: normal ENT inspection, TMs normal, pharynx normal, moist mucous membranes Neck Exam: normal inspection, non-tender, supple, full range of motion Respiratory Exam: normal breath sounds, lungs clear, No respiratory distress Cardiovascular Exam: regular rate/rhythm, normal heart sounds Gastrointestinal/Abdomen Exam: soft, No tenderness Back Exam: normal inspection, No CVA tenderness, No vertebral tenderness Extremity Exam: normal inspection, normal range of motion Neurologic Exam: alert, oriented x 3, cooperative, normal mood/affect, sensation nml, No motor deficits Skin Exam: normal color, warm, dry, No rash Lymphatic Exam: No adenopathy SpO2 Interpretation: normal SpO2: 96 O2 Delivery: Room Air - Course Nursing assessment & vital signs reviewed: Yes EKG Interpreted by Me: Sinus Rhythm, NORMAL AXIS, NORMAL INTERVALS, NORMAL QRS, Non-specific ST Changes - Radiology Exams Chest X-ray Interpretation: Reviewed by me, No Pneumothorax, Infiltrates (patchy consistent with COvid) Ordered Tests: Active Orders 24 hr Category Date Time Status EKG-ER Only STAT Care 12/24/23 20:55 Active CHEST 1 VIEW (PORTABLE) Stat Exams 12/24/23 20:55 Taken CBC W DIFF Stat Lab 12/24/23 21:10 Completed CMP Stat Lab 12/24/23 21:10 Completed NT PRO BNPII Stat Lab 12/24/23 21:10 Completed TROPONIN Q4H Lab 12/24/23 21:10 Completed TROPONIN Q4H Lab 12/25/23 01:00 Ordered TROPONIN Q4H Lab 12/25/23 05:00 Ordered Lab/Rad Data: Laboratory Result Diagrams 12/24/23 21:10 12/24/23 21:10 Laboratory Results 12/24/23 12/24/23 12/24/23 Range/Units 21:10 21:10 21:10 WBC (3.98-10.04) x10^3/uL RBC (3.93-5.22) x10^6/uL Hgb (11.2-15.7) g/dL Hct (34.1-44.9) % MCV (79.4-94.8) fL MCH (25.6-32.2) pg MCHC (32.2-35.5) g/dL RDW (11.7-14.4) % Plt Count (182-369) x10^3/uL MPV (9.4-12.3) fL Gran % (34.0-71.1) % Immature Gran % (Auto) (0.001-0.429) % Nucleat RBC Rel Count (0.00-0.2) % Eos # (Auto) (0.04-0.36) x10^3/uL Immature Gran # (Auto) (0.001-0.031) x10^3u/L Absolute Lymphs (auto) (1.18-3.74) x10^3/uL Absolute Monos (auto) (0.24-0.86) x10^3/uL Absolute Nucleated RBC (0.00-0.012) x10^3u/L Lymphocytes % (19.3-51.7) % Monocytes % (4.7-12.5) % Eosinophils % (0.7-5.8) % Basophils % (0.1-1.2) % Absolute Granulocytes (1.56-6.13) x10^3/uL Basophils # (0.01-0.08) x10^3/uL Sodium 134 L (135-145) mmol/L Potassium 3.8 (3.5-5.1) mmol/L Chloride 103 (98-107) mmol/L Carbon Dioxide 21 L (22-30) mmol/L Anion Gap 13.9 (5-15) MEQ/L BUN 19 H (7-17) mg/dL Creatinine 0.82 (0.52-1.04) mg/dL Estimated GFR 70.9 ML/MIN Glucose 244 H (74-106) mg/dL Calcium 9.5 (8.4-10.2) mg/dL Total Bilirubin 1.00 (0.2-1.3) mg/dL AST 36 (14-36) U/L ALT 28 (0-35) U/L Alkaline Phosphatase 82 (38-126) U/L Troponin I < 0.012 (0.000-0.033) ng/mL NT-Pro-B Natriuret Pep 153 (<300) pg/mL Serum Total Protein 7.0 (6.3-8.2) g/dL Albumin 4.2 (3.5-5.0) g/dL Influenza Type A Ag NEGATIVE (NEGATIVE) Influenza Type B Ag NEGATIVE (NEGATIVE) RSV (PCR) NEGATIVE (NEGATIVE) SARS-CoV-2 (PCR) POSITIVE A (NEGATIVE) Slides for Path Review 12/24/23 Range/Units 21:10 WBC 3.9 L (3.98-10.04) x10^3/uL RBC 3.97 (3.93-5.22) x10^6/uL Hgb 12.6 (11.2-15.7) g/dL Hct 38.4 (34.1-44.9) % MCV 96.7 H (79.4-94.8) fL MCH 31.7 (25.6-32.2) pg MCHC 32.8 (32.2-35.5) g/dL RDW 13.3 (11.7-14.4) % Plt Count 93 L (182-369) x10^3/uL MPV 10.7 (9.4-12.3) fL Gran % 80.2 H (34.0-71.1) % Immature Gran % (Auto) 0.3 (0.001-0.429) % Nucleat RBC Rel Count 0.0 (0.00-0.2) % Eos # (Auto) 0.05 (0.04-0.36) x10^3/uL Immature Gran # (Auto) 0.01 (0.001-0.031) x10^3u/L Absolute Lymphs (auto) 0.41 L (1.18-3.74) x10^3/uL Absolute Monos (auto) 0.27 (0.24-0.86) x10^3/uL Absolute Nucleated RBC 0.00 (0.00-0.012) x10^3u/L Lymphocytes % 10.5 L (19.3-51.7) % Monocytes % 6.9 (4.7-12.5) % Eosinophils % 1.3 (0.7-5.8) % Basophils % 0.8 (0.1-1.2) % Absolute Granulocytes 3.14 (1.56-6.13) x10^3/uL Basophils # 0.03 (0.01-0.08) x10^3/uL Sodium (135-145) mmol/L Potassium (3.5-5.1) mmol/L Chloride (98-107) mmol/L Carbon Dioxide (22-30) mmol/L Anion Gap (5-15) MEQ/L BUN (7-17) mg/dL Creatinine (0.52-1.04) mg/dL Estimated GFR ML/MIN Glucose (74-106) mg/dL Calcium (8.4-10.2) mg/dL Total Bilirubin (0.2-1.3) mg/dL AST (14-36) U/L ALT (0-35) U/L Alkaline Phosphatase (38-126) U/L Troponin I (0.000-0.033) ng/mL NT-Pro-B Natriuret Pep (<300) pg/mL Serum Total Protein (6.3-8.2) g/dL Albumin (3.5-5.0) g/dL Influenza Type A Ag (NEGATIVE) Influenza Type B Ag (NEGATIVE) RSV (PCR) (NEGATIVE) SARS-CoV-2 (PCR) (NEGATIVE) Slides for Path Review YES - Progress Progress: improved, re-examined Air Movement: good Progress Note: 12/25/23 00:18 pt andfamily were advised or risks/benefits for PE protocol scan and wishes to decline and that also there may be other causes such as cardiac causing the SObreath although she does have Covid and she wishes outpt f/u with PMD rather than inpt or further w/u in ER and has the capacity to make these choices. now that her leg hematoma has resolved she will discuss with PMD going back on her previous dose of eliquis to also protect for her a fib/flutter. SHe also declines paxlovid due to risks with med interactions after discussion and that she is doing well and has no imune compromise known to justify this risk and this choice is reasonable and she has the capcity to make this choice. 12/25/23 00:24 Blood Culture(s) Obtained: No Antibiotics given: No Counseled pt/family regarding: lab results, diagnosis, need for follow-up, rad results Medical Desision Making - Independent Historian Additional History obtained from: Family - Discussion of managment Reviewed:: Test results, Need for additional workup Agreed on:: Treatment plan, need for follow-up, decision to admit - Diagnostic Testing Diagnostic test were ordered, analyzed, and reviewed by me: Yes Radiological Interpretation: Reviewed by me - Risk of complications The pt has a mod risk of morbidity or mortality based on: Need for prescription drug management The pt has a high risk of morbidity or mortality based on: Decision regarding hospitilization or escalation of hosp level of care - Departure Departure Disposition: Home Clinical Impression: COVID Condition: Good Critical Care Time: No Referrals: MARSHA POE MD [Primary Care Provider] - Follow up/PCP as directed Instructions: COVID-19 ED Additional Instructions: follow-up with your Dr this week, and discuss your elliquis dose . You report that your DrDeanna did not reduce this dose, so it is reasonable to resume the prescribed dose since your have no further signs of bleeding, but this should also be discussed SPRING with your DrDeanna so that he is aware. Return meantime if any symptoms of concern such as shortness of breath or chest pain or dizziness.
[2023-12-24 20:44] VITALS: RESP 18; TEMP 99.4
[2023-12-24 20:55] VITALS: O2SAT 96
[2023-12-24 21:20] LABS: Absolute Neutrophil Ct (ANC) 3.14 x10^3/uL (1.56-6.13); BASOPHIL % 0.8 % (0.1-1.2); Basophil (Absolute #) 0.03 x10^3/uL (0.01-0.08); Eosinophil % 1.3 % (0.7-5.8); Eosinophil (Absolute #) 0.05 x10^3/uL (0.04-0.36); Hematocrit 38.4 % (34.1-44.9); Hemoglobin 12.6 g/dL (11.2-15.7); IMMATURE GRAN # 0.01 x10^3u/L (0.001-0.031); IMMATURE GRAN % 0.3 % (0.001-0.429); Lymphocyte (Absolute #) 0.41 x10^3/uL (1.18-3.74); Lymphocytes % 10.5 % (19.3-51.7); Mean Cell Volume 96.7 fL (79.4-94.8); Mean Corpuscular Hemoglobin 31.7 pg (25.6-32.2); Mean Corpuscular Hgb Concent. 32.8 g/dL (32.2-35.5); Mean Platelet Volume 10.7 fL (9.4-12.3); Monocyte (Absolute #) 0.27 x10^3/uL (0.24-0.86); Monocytes % 6.9 % (4.7-12.5); Neutrophil % 80.2 % (34.0-71.1); Platelet Count 93 x10^3/uL (182-369); Red Blood Count 3.97 x10^6/uL (3.93-5.22); Red Cell Distribution Width 13.3 % (11.7-14.4); White Blood Count 3.9 x10^3/uL (3.98-10.04)
[2023-12-24 21:42] LABS: ALBUMIN 4.2 g/dL (3.5-5.0); ANION GAP 13.9 MEQ/L (5-15); Calcium 9.5 mg/dL (8.4-10.2); Creatinine 1 0.82 mg/dL (0.52-1.04); EST GLOMERULAR FILTRATION RATE 70.9 ML/MIN; Potassium 3.8 mmol/L (3.5-5.1)
[2023-12-24 21:46] LABS: Slide Review 1 YES
[2023-12-24 22:02] LABS: INFLUENZA A NEGATIVE (NEGATIVE); INFLUENZA B NEGATIVE (NEGATIVE); RESPIRATORY SYNCTIAL VIRUS NEGATIVE (NEGATIVE)
[2023-12-24 22:04] LABS: SARS-CoV-2 Xpert Express POSITIVE (NEGATIVE)
[2023-12-25 00:35] VITALS: BP 130/58; PULSE 81
--- NOTE | 2023-12-25 07:30 | XRAY ---
Indication: Short of breath. Comparison: January 12, 2023 Portable chest inflated without focal infiltrate, consolidation, or large effusion. Heart not enlarged again with tortuous descending aorta and small hiatal hernia. Bony thorax intact again with osteopenia and degenerative changes. Impression: Continued nonacute chest with chronic features.
== END 2023-12-25 00:51 | disposition home or self-care (01) ==
LOC: ED 20:20
DX: U07.1 COVID-19 (principal); R06.02 Shortness of breath; R05.9 Cough, unspecified; I10 Essential (primary) hypertension; E10.9 Type 1 diabetes mellitus without complications; Z79.01 Long term (current) use of anticoagulants; Z79.899 Other long term (current) drug therapy
CPT/HCPCS: 0241U; 36415; 71045; 80053; 83880; 84484; 85025; 93005; 99283